=== PATIENT | female | born 1990 | race African-American/Black ===

== ENCOUNTER 2016-10-06 23:07 | Outpatient (CLI) | payer MEDICAID ==
[2016-10-07 00:07] LABS: APPEARANCE,URINE SLIGHTLY-CLOUDY; BILIRUBIN,URINE NEGATIVE (NEGATIVE); GLUCOSE, URINE NEGATIVE (NEGATIVE); KETONES,URINE NEGATIVE (NEGATIVE); LEUKOCYTE ESTERASE,URINE TRACE (NEGATIVE); NITRITE,URINE NEGATIVE (NEGATIVE); PROTEIN,URINE NEGATIVE (NEGATIVE); URINE SPECIFIC GRAVITY 1.026
[2016-10-07 00:28] LABS: URINE BARBITURATES SCREEN NEGATIVE; URINE METHADONE SCREEN NEGATIVE; URINE PHENCYCLIDINE SCREEN NEGATIVE
[2016-10-07] MEDS ORDERED: HYDROXYZINE PAMOATE 50 MG CAPSULE PO ONE (01:12)
[2016-10-07] MEDS ORDERED: HYDROXYZINE PAMOATE 50 MG CAPSULE ONE (01:17)
--- NOTE | 2016-10-07 01:37 | Non Stress Test Report ---
Non Stress Test Datetime Report Generated by CPN: 10/07/2016 01:37 DEMOGRAPHIC EGA NST: 33.0 INDICATION Indication for Study: Other Indication for Study (NST) Other: Labor Check MONITORING Monitor Explained: Monitor Explained; Test Explained; Patient Verbalized Understanding Time on Monitor: 10/06/2016 23:37 Time off Monitor: 10/07/2016 01:05 NST Duration: 88 NST INTERVENTIONS NST Interventions: None Physician Notified NST: Dr Hebert BABY A: [id number] BABY A Movement : Present Contraction Frequency : none FHR Baseline : 145 Accelerations : 15X15 Decelerations : None Variability : Moderate 6-25bpm NST Review: Meets Criteria for Reactive NST NST Review and Verified By : Donnell Onofre, RNC NST Results: Reactive NST REPORT Report Trigger: Send Report
--- NOTE | 2016-10-07 04:47 | L&D Admission Assessment ---
LD ADM ASMT Datetime Report Generated by CPN: 10/07/2016 04:45 PATIENT ASSESSMENT Assessment Type: Triage (10/06/2016 23:45:Rucsandra Alla, RN) WEIGHT Weight (lb): 299 (10/06/2016 23:29:QS system process) Weight (kg): 135.9 (10/06/2016 23:29:QS system process) PAIN Pain Scale: 2 (10/07/2016 01:04:Romain Gold RN) Pain Scale: 4 (10/06/2016 23:45:Romain Gold RN) Pain Presence: Constant (10/07/2016 01:04:Romain Gold RN) Pain Presence: Constant (Annotations: pt reports constant round ligament pain. ) (10/06/2016 23:45:Romani Gold RN) Pain Type: Ache (10/07/2016 01:04:Romain Gold RN) Pain Type: Sharp; Ache (10/06/2016 23:45:Romain Gold RN) Pain Location: round ligament (10/07/2016 01:04:Romain Gold RN) Pain Location: Abdomen (10/06/2016 23:45:Romain Gold RN) Pain Goal: 2 (10/07/2016 01:04:Romain Gold RN) Pain Goal: 2 (10/06/2016 23:45:Romain Gold RN) Pain Related to Contraction: No (10/06/2016 23:45:Romain Gold RN) CONTRACTIONS Frequency (min): none (10/07/2016 01:00:Romain Gold RN) Frequency (min): none (10/07/2016 00:30:Romain Gold RN) Frequency (min): none (10/07/2016 00:00:Romain Gold RN) Frequency (min): 1 every hour (10/06/2016 23:45:Romain Gold RN) Resting Tone Lowrey: Relaxed (10/07/2016 01:00:Romain Gold RN) Resting Tone Lowrey: Relaxed (10/07/2016 00:30:Romain Gold RN) Resting Tone Lowrey: Relaxed (10/07/2016 00:00:Romain Gold RN) Contraction Comments: pt denies feeling ctx. (10/07/2016 00:30:Romain Gold RN) Contraction Comments: abdomen palpates soft. Pt denies feeling ctxx. (10/07/2016 00:00:Romain Gold RN) NEURO Level of Consciousness: Fully Conscious (10/06/2016 23:45:Romain Gold RN) DTR's/Clonus: DTRs 1+; No Clonus (10/06/2016 23:45:Romain Gold RN) Headache: Denies (10/06/2016 23:45:Romain Gold RN) Dizziness: No (10/06/2016 23:45:Romain Gold RN) Blurred Vision: No (10/06/2016 23:45:Romain Gold RN) Extremity Numbness/Tingling : None (10/06/2016 23:45:Romain Gold RN) Extremity Movement: Full Range of Motion (10/06/2016 23:45:Romain Gold RN) CARDIOVASCULAR Heart Rhythm: Regular (10/06/2016 23:45:Romain Gold RN) Nailbeds: [place] (10/06/2016 23:45:Romain Gold RN) Capillary Refill: Less than 3 Seconds (10/06/2016 23:45:Romain Gold RN) Lower Extremities Edema: None (10/06/2016 23:45:Romain Gold RN) Lower Extremities Edema Degree: None (10/06/2016 23:45:Romain Gold RN) Upper Extremities Edema: None (10/06/2016 23:45:Romain Gold RN) Upper Extremities Edema Degree: None (10/06/2016 23:45:Romain Gold RN) Facial Edema: None (10/06/2016 23:45:Romain Gold RN) DVT RISK ASSESSMENT DVT Risk Age: Age less than 41 years (10/06/2016 23:45:Romain Gold RN) DVT Risk BMI: BMI 41 to 50 (10/06/2016 23:45:Romain Gold RN) DVT Risk Surgery: History of Prior Major Surgery (Annotations: pt had C/S on 10/2015) (10/06/2016 23:45:Romain Gold RN) DVT Risk Other: Women Only- or (<1 month) (10/06/2016 23:45:Romain Gold RN) DVT Risk Total: 4 (10/06/2016 23:45:QS system process) DVT Risk Text: High Risk (20-40%)- Consider stockings, compresssion device, pharmacological therapy per hospital policy (10/06/2016 23:45:QS system process) RESPIRATORY Respiratory Effort: Unlabored; Regular Rhythm; Equal Expansion (10/06/2016 23:45:Romain Gold RN) Breath Sounds, Left: Clear and Equal (10/06/2016 23:45:Romain Gold RN) Breath Sounds, Right: Clear and Equal (10/06/2016 23:45:Romain Gold RN) Cough Productivity: None (10/06/2016 23:45:Romain Gold RN) GASTROINTESTINAL Nausea/Vomiting: Denies (10/06/2016 23:45:Romain Gold RN) Bowel Sounds: Normoactive (10/06/2016 23:45:Romain Gold RN) RUQ Epigastric Pain: Denies (10/06/2016 23:45:Romain Gold RN) Bowel Patterns: Soft, Formed Stool (10/06/2016 23:45:Romain Gold RN) Hemorrhoids: None (10/06/2016 23:45:Romain Gold RN) Diet Type: Regular diet (10/06/2016 23:45:Romain Gold RN) Last Meal: 10/06/2016 20:00 (10/06/2016 23:45:Romain Gold RN) GENITOURINARY Bladder: Nondistended (Annotations: voiding) (10/06/2016 23:45:Romain Gold RN) Frequency of Urination: No (10/06/2016 23:45:Romain Gold RN) Urination Burning: No (10/06/2016 23:45:Romain Gold RN) CVA Tenderness: No (10/06/2016 23:45:Romain Gold RN) Vaginal Bleeding: None (10/06/2016 23:45:Romain Gold RN) Vaginal Discharge Amount: None (10/06/2016 23:45:Romain Gold RN) Vaginal Discharge Color: N/A (10/06/2016 23:45:Romain Gold RN) INTEGUMENTARY Skin Color: Normal for Race (10/06/2016 23:45:Romain Gold RN) Skin Temperature: Warm (10/06/2016 23:45:Romain Gold RN) Skin Moisture: Dry (10/06/2016 23:45:Romain Gold RN) Surgical Scars: previous C/S (10/06/2016 23:45:Romain Gold RN) Body Piercings/Tattoos: 3 tattoos, ears pierced. (10/06/2016 23:45:Romain Gold RN) CONNOR SKIN ASSESSMENT Connor Scale Sensory Perception: No Impairment- Responds to verbal commands. Has no sensory deficit which would limit ability to feel or voice pain or discomfort (10/06/2016 23:45:Romain Gold RN) Connor Scale Moisture: Rarely Moist- Skin is usually dry. Linen only requires changing at routine intervals (10/06/2016 23:45:Romain Gold RN) Connor Scale Activity: Walks Frequently- Walks outside the room at least twice a day and inside room at least every 2 hours during the day. (10/06/2016 23:45:Romain Gold RN) Connor Scale Mobility: No Limitations- Makes major and frequent changes in position without assistance (10/06/2016 23:45:Romain Gold RN) Connor Scale Nutrition: Excellent- Eats most of every meal. Never refuses a meal. Usually eats a total of 4 or more servings of meat and dairy products. Occasionally eats between meals. Does not require supplementation (10/06/2016 23:45:Romain Gold RN) Connor Scale Friction and Shear: No Apparent Problem- Moves in bed and in chair independently and has sufficient muscle strength to lift up completely during move. Maintains good position in bed or chair at all times (10/06/2016 23:45:Romain Gold RN) Connor Scale Total: 23 (10/06/2016 23:45:QS system process) Connor Scale Risk: No Risk of Pressure Ulcer Noted at this Time (10/06/2016 23:45:QS system process) SUPPORT Family Support: Significant Other supportive, at bedside frequently (10/06/2016 23:45:Romain Gold RN) Emotional State: Calm/Relaxed (10/06/2016 23:45:Romain Gold RN) SAFETY Call Gutierrez Within Reach: Yes (10/06/2016 23:45:Romain Gold RN) Side Rails Up: Yes (10/06/2016 23:45:Romain Glod RN) Bed Wheels Locked: Yes (10/06/2016 23:45:Romain Gold RN) Arm Bands Present: Yes (10/06/2016 23:45:Romain Gold RN) BABY A FHR Baseline Rate (bpm) Baby A: 140 (10/07/2016 01:00:Romain Gold RN) FHR Baseline Rate (bpm) Baby A: 150 (10/07/2016 00:30:Romain Gold RN) FHR Baseline Rate (bpm) Baby A: 145 (10/07/2016 00:00:Romain Gold RN) Variability Baby A: Moderate 6-25 bpm (10/07/2016 01:00:Romain Gold RN) Variability Baby A: Moderate 6-25 bpm (10/07/2016 00:30:Romain Gold RN) Variability Baby A: Moderate 6-25 bpm (10/07/2016 00:00:Romain Gold RN) Accelerations Baby A: 15X15 (10/07/2016 01:00:Romain Gold RN) Accelerations Baby A: 10X10 (10/07/2016 00:30:Romain Gold RN) Accelerations Baby A: 15X15 (10/07/2016 00:00:Romain Gold RN) Decelerations Baby A: None (10/07/2016 01:00:Romain Gold RN) Decelerations Baby A: None (10/07/2016 00:30:Romain Gold RN) Decelerations Baby A: None (10/07/2016 00:00:Romain Gold RN)
--- NOTE | 2016-10-07 04:47 | Antepartum Discharge Summary ---
Antepartum DC Datetime Report Generated by CPN: 10/07/2016 04:45 DIET/ACTIVITY/RESTRICTIONS Diet: Regular (10/07/2016 01:23:Rucsandra Alla, RN) Activity: Normal Activity (10/07/2016 01:23:Rucsandra Alla, RN) TEACHING/INSTRUCTIONS/REFERRALS Instructions Given To: Patient (10/07/2016 01:23:Rucsandra Alla, RN) Instructions Understood: Patient Verbalized Understanding (10/07/2016 01:23:Romain Gold RN) Referrals: None (10/07/2016 01:23:Romain Gold RN) Educational Materials- Other: Care notes given on kick counts, labor signs, dehydration and round ligament pain. Care notes reviewed wt pt. Pt agrees and V/U. (10/07/2016 01:23:Romain Gold RN) DISCHARGE INFORMATION Discharged AMA: No (10/07/2016 01:23:Romain Gold RN) Discharge Date/Time: 10/07/2016 01:27 (10/07/2016 01:23:Romain Gold RN) Discharged To: Home (10/07/2016 01:23:Romain Gold RN) Discharge Provider Name: Dr Hebert (10/07/2016 01:23:Romain Gold RN) Accompanied By: FOB (10/07/2016 01:23:Romain Gold RN) Discharge Method: Ambulatory (10/07/2016 01:23:Romain Gold RN) Condition: Stable (10/07/2016 01:23:Romain Gold RN) FOLLOW UP INFORMATION Follow Up With: [facility] (10/07/2016 01:23:Romain Gold RN) Follow Up On: As Scheduled (10/07/2016 01:23:Romain Gold RN) Comments: Pt D/C home in stable condition per Dr Hebert. Pt instructed to drink 5-6 pitchers of water per day and to return to unit if bleeding like a period, leaking of fluid, more than 6 ctx per hour, and/or decreased movement. Care notes given and reviewed with pt. Pt instructed to keep scheduled appointments. Pt agrees and V/U regarding all topics discussed. (10/07/2016 01:23:Romain Gold RN)
--- NOTE | 2016-10-07 04:47 | L&D General Admission ---
General Admit Datetime Report Generated by CPN: 10/07/2016 04:45 INFORMATION Patient Age: 26 (09/09/2016 11:53:QS system process) EDC: 11/24/2016 00:00 (10/06/2016 23:10:Jo Onofre RN) : 2 (10/06/2016 23:10:Allison Livingston RN) Para: 1 (10/06/2016 23:10:Allison Livingston RN) Term: 1 (10/06/2016 23:10:Allison Livingston RN) : 0 (10/06/2016 23:10:oJ Onofre RN) Spontaneous Abortions: 0 (10/06/2016 23:10:Jo Onofre RN) Induced Abortions: 0 (10/06/2016 23:10:Jo Onofre RN) Livin (10/06/2016 23:10:Jo Onofre RN) Cesareans: 1 (10/06/2016 23:10:Allison Livingston RN) VBACs: 0 (10/06/2016 23:10:Allison Livingston RN) Ectopic: 0 (10/06/2016 23:10:Allison Livingston RN) Multiple Births: 0 (10/06/2016 23:10:Allison Livingston RN) Baby, Number in Womb: 1 (10/07/2016 01:23:Romain Gold RN) Baby, Number in Womb: 1 (10/06/2016 23:10:Allison Livingston RN) CARE Primary Roof Mechanic: [facility] (10/06/2016 23:10:Allison Livingston RN) Adequate Care: No (10/06/2016 23:10:Allison Livingston RN) Height (in): 60 (10/06/2016 23:29:QS system process) ALLERGIES Medication Allergy: No (10/06/2016 23:10:Allison Livingston RN) Medication Allergies: No Known Allergies (06/05/2016) (09/09/2016 11:53:QS system process) COMMUNICATION Primary Language: Hong Konger (10/06/2016 23:10:Allison Livingston RN) Medical Tx Preferred Language: Hong Konger (10/06/2016 23:10:Allison Livingston RN) Communication Barrier(s): None (10/06/2016 23:10:Allison Livingston RN) DEMOGRAPHICS Address: [address] [place] [address] (10/06/2016 23:08:QS system process) Address: [address] [place] [id number] (09/09/2016 11:53:QS system process) Zipcode: [id number] (09/09/2016 11:53:QS system process) Home (10/06/2016 23:08:QS system process) Home (09/09/2016 11:53:QS system process) Work (09/09/2016 11:53:QS system process) SSN: [id number] (09/09/2016 11:53:QS system process) Next of Kin Name: JUNIOR ARREGUIN (09/09/2016 11:53:QS system process) Next of Kin (09/09/2016 11:53:QS system process) Next of Kin Relationship: OR (09/09/2016 11:53:QS system process) Date of : 1990 (09/09/2016 11:53:QS system process) Marital Status: Single (09/09/2016 11:53:QS system process) Sex: Female (09/09/2016 11:53:QS system process) Race: (09/09/2016 11:53:QS system process) Ethnicity: Non- or (09/09/2016 11:53:QS system process) Church: None (09/09/2016 11:53:QS system process) DRUG AND ALCOHOL USE Alcohol: No (10/06/2016 23:10:Romain Gold RN) Cigarettes: Never Smoker. [id number] (10/06/2016 23:10:Romain Gold RN) Marijuana: No (10/06/2016 23:10:Romain Gold RN) Cocaine: No (10/06/2016 23:10:Romain Gold RN) Other Illicit Drugs: No (10/06/2016 23:10:Romain Gold RN) VACCINE HISTORY Influenza Vaccine: No (10/06/2016 23:10:Romain Gold RN) Pneumococcal Vaccine: No (10/06/2016 23:10:Romain Gold RN) Tetanus Vaccine: No (10/06/2016 23:10:Romain Gold RN) Tdap Vaccine: No (10/06/2016 23:10:Romain Gold RN) Hepatitis B Vaccine: No (10/06/2016 23:10:Romain Gold RN) Paper Sales Representative: [facility] (10/06/2016 23:10:Romain Gold RN) Feeding Preference: Both (10/06/2016 23:10:Romain Gold RN) Benefit of Breast Feed Discussed: Yes (10/06/2016 23:10:Romain Gold RN) Circumcision: N/A (10/06/2016 23:10:Romain Gold RN) Classes Attended: No (10/06/2016 23:10:Romain Gold RN) Pain Management Plans: Spinal (10/06/2016 23:10:Romain Gold RN) Plans for Labor and Delivery: None (10/06/2016 23:10:Romain Gold RN) Support Person: Bradley (10/06/2016 23:10:Romain Gold RN) Support Person Relationship: Significant Other (10/06/2016 23:10:Romain Gold RN) Cultural/Spritual Practice: No (10/06/2016 23:10:Romain Gold RN) Spir/Cult Dietary Needs: No (10/06/2016 23:10:Romain Gold RN) LIVING SITUATION/DISCHARGE PLAN Living Arrangements: House (10/06/2016 23:10:Romain Gold RN) Adequate Access to:: Electric; Heat; Refrigeration; Plumbing/Running water; Phone; Transportation (10/06/2016 23:10:Romain Gold RN) WIC Program: Yes (10/06/2016 23:10:Romain Gold RN) Discharge Front End Developer Person: Bradley (10/06/2016 23:10:Romain Gold RN) Person to Help after Discharge: Bradley (10/06/2016 23:10:Romain Gold RN) Currently Using Commun Resources: Yes (10/06/2016 23:10:Romain Gold RN) Specify Current Resource Used: Medicaid (10/06/2016 23:10:Romain Gold RN) Outside Agency/Section Maintainer: No (10/06/2016 23:10:Romain Gold RN) Car Seat for Discharge: Yes (10/06/2016 23:10:Romain Gold RN) Adoption Requested: No (10/06/2016 23:10:Romain Gold RN) Pt Contact w/ Post : N/A (10/06/2016 23:10:Romain Gold RN) LABS Blood Type: A Positive (10/06/2016 23:10:Jo Onofre RN) Antibody Screen: negative (10/06/2016 23:10:Jo Onofre RN) RPR/VDRL: Nonreactive (10/06/2016 23:10:Jo Onofre RN) HIV Results: non-reactive (10/06/2016 23:10:Jo Onofre RN) Hepatitis B: Negative (10/06/2016 23:10:Jo Onofre RN) Rubella: Immune (10/06/2016 23:10:Jo Onofre RN) Rubella Titer: 1.74 (10/06/2016 23:10:Jo Onofre RN) OB/PREVIOUS HISTORY Previous Procedures: Ultrasound (10/06/2016 23:10:Romain Gold RN) Current Procedures: Ultrasound (10/06/2016 23:10:Romain Gold RN) History of Previous : Yes (10/06/2016 23:10:Romain Gold RN) History of Gestational Diabetes: No (10/06/2016 23:10:Romain Gold RN) History of PIH: No (10/06/2016 23:10:Romain Gold RN) History of Incompetent Cervix: No (10/06/2016 23:10:Romain Gold RN) History of Placenta Previa/Abrup: No (10/06/2016 23:10:Romain Gold RN) History of Macrosomia: No (10/06/2016 23:10:Romain Gold RN) History of IUGR: No (10/06/2016 23:10:Romain Gold RN) History of Hemorrhage: No (10/06/2016 23:10:Romain Gold RN) History of Loss/Stillborn: No (10/06/2016 23:10:Romain Gold RN) History of : No (10/06/2016 23:10:Romain Gold RN) History of D (Rh) Sensitization: No (10/06/2016 23:10:Romain Gold RN) History Recurrent Loss/Stillborn: No (10/06/2016 23:10:Romain Gold RN) History Depression/PP Depression: No (10/06/2016 23:10:Romain Gold RN) History of Uterine Anomaly/CONY: No (10/06/2016 23:10:Romain Gold RN) History of Infertility: No (10/06/2016 23:10:Romain Gold RN) History of ART Treatment: No (10/06/2016 23:10:Romain Gold RN) History of CONY: No (10/06/2016 23:10:Romain Gold RN) MEDICAL HISTORY Med Hx Diabetes: No (10/06/2016 23:10:Romain Gold RN) Med Hx Hypertension: No (10/06/2016 23:10:Romain Gold RN) Med Hx Heart Disease: No (10/06/2016 23:10:Romain Gold RN) Med Hx Autoimmune Disorder: No (10/06/2016 23:10:Romain Gold RN) Med Hx Kidney Disease/UTI: No (10/06/2016 23:10:Romain Gold RN) Med Hx Neurologic/Epilepsy: No (10/06/2016 23:10:Romain Gold RN) Med Hx Psychiatric Disorders: No (10/06/2016 23:10:Romain Gold RN) Med Hx Hepatitis/Liver Disease: No (10/06/2016 23:10:Romain Gold RN) Med Hx Varicosities/Phlebitis: No (10/06/2016 23:10:Romain Gold RN) Med Hx Thyroid Dysfunction: No (10/06/2016 23:10:Romain Gold RN) Med Hx Trauma/Violence: No (10/06/2016 23:10:Romain Gold RN) Med Hx Blood Transfusion: No (10/06/2016 23:10:Romain Gold RN) Med Hx Pulmonary (Asthma,TB): No (10/06/2016 23:10:Romain Gold RN) Med Hx Breast: No (10/06/2016 23:10:Romain Gold RN) Med Hx NATIONAL EXPANSION RECRUITER Surgery: No (10/06/2016 23:10:Romain Gold RN) Med Hx Hospitalization/Surgery: Yes (10/06/2016 23:10:Romain Gold RN) Med Hx Anesthetic Complications: No (10/06/2016 23:10:Romain Gold RN) Med Hx Abnormal Pap Smear: No (10/06/2016 23:10:Romain Gold RN) Other Medical Diseases: No (10/06/2016 23:10:Romain Gold RN) Med Hx Significant Family Hx: No (10/06/2016 23:10:Romain Gold RN) Details of Med/Surg Hx: 10/2015 G1- Primary C/S (10/06/2016 23:10:Romain Gold RN) INFECTIOUS HISTORY Inf Hx Gonorrhea: No (10/06/2016 23:10:Romain Gold RN) Inf Hx Chlamydia: No (10/06/2016 23:10:Romain Gold RN) Inf Hx Syphilis: No (10/06/2016 23:10:Romain Gold RN) Inf Hx HIV/AIDS: No (10/06/2016 23:10:Romain Gold RN) Inf Hx Human Papilloma Virus: No (10/06/2016 23:10:Romain Gold RN) Inf Hx Pt/Partner Genital Herpes: No (10/06/2016 23:10:Romain Gold RN) Inf Hx Tuberculosis/Exposure: No (10/06/2016 23:10:Romain Gold RN) Inf Hx Hepatitis B,C: No (10/06/2016 23:10:Romain Gold RN) Inf Hx Rash or Viral Illness: No (10/06/2016 23:10:Romain Gold RN) GENETIC HISTORY Gen Hx Age >=35 at JOVANNI: No (10/06/2016 23:10:Romain Gold RN) Gen Hx Thalassemia: No (10/06/2016 23:10:Romain Gold RN) Gen Hx Congenital Heart Defect: No (10/06/2016 23:10:Romain Gold RN) Gen Hx Neural Tube Defect: No (10/06/2016 23:10:Romain Gold RN) Gen Hx Down's Syndrome: No (10/06/2016 23:10:Romain Gold RN) Gen Hx Wil-Sachs: No (10/06/2016 23:10:Romain Gold RN) Gen Hx Jose: No (10/06/2016 23:10:Romain Gold RN) Gen Hx Familial Dysautonomia: No (10/06/2016 23:10:Romain Gold RN) Gen Hx Sickle Cell Disease/Trait: No (10/06/2016 23:10:Romain Gold RN) Gen Hx Hemophilia/Blood Disorder: No (10/06/2016 23:10:Romain Gold RN) Gen Hx Muscular Dystrophy: No (10/06/2016 23:10:Romain Gold RN) Gen Hx Cystic Fibrosis: No (10/06/2016 23:10:Romain Gold RN) Gen Hx Huntingtons Chorea: No (10/06/2016 23:10:Romain Gold RN) Gen Hx Mental Retardation/Autism: No (10/06/2016 23:10:Romain Gold RN) Gen Hx Tested for Fragile X: No (10/06/2016 23:10:Romain Gold RN) Gen Hx Other Inher/Chromosomal: No (10/06/2016 23:10:Romain Gold RN) Gen Hx Maternal Metabolic DO: No (10/06/2016 23:10:Romain Gold RN) Gen Hx Pt Father or FOB Defect: No (10/06/2016 23:10:Romain Gold RN) Gen Hx Other Genetic History: No (10/06/2016 23:10:Romain Gold RN) Gen Hx Drugs/Meds since LMP: No (10/06/2016 23:10:Romain Gold RN)
--- NOTE | 2016-10-07 04:47 | L&D Current Admission ---
Current Admit Datetime Report Generated by N: 10/07/2016 04:45 ADMISSION INFORMATION Chief Complaint: at 33.0 EDC 11/24/16 with planned C/S on 11/17/16 with complaints of 1 ctx per hour throughout the day. Pt states she was told that if she had more than 4 ctx in a day to come to the hospital. Pt also complaining of round ligament pain which she rates as a 4 on a 0-5 scale, however no distress noted. Pt denies LOF or bleeding. +FM. (10/06/2016 23:45:Romain Gold RN)
--- NOTE | 2016-10-07 04:47 | L&D Flow Sheet ---
LD Flowsheet Datetime Report Generated by CPN: 10/07/2016 04:45 Datetime: 10/07/2016 01:27 Communication Comments: Pt D/C home in stable condition per Dr Hebert. Pt instructed to drink 5-6 pitchers of water per day and to return to unit if bleeding like a period, leaking of fluid, more than 6 ctx per hour, and/or decreased movement. Care notes given and reviewed with pt. Pt instructed to keep scheduled appointments. Pt agrees and V/U regarding all topics discussed. (Romain Gold RN) Datetime: 10/07/2016 01:17 Medications Medication Comments: Vistaril 50mg PO x1 dose. (Rucsandra Alla, RN) Datetime: 10/07/2016 01:10 Maternal Comments: Monitors off for pt D/C home in stable condition per Dr. Hebert. (Rucsandra Alla, RN) Datetime: 10/07/2016 01:08 Communication Communication: Call/Page Placed to Provider (Romain Gold RN) Provider Notified (Name): Dr Hebert (Romain Gold RN) Notification Reason: Status Update (Romain Gold RN) Communication Comments: Called Dr Hebert, advised of Gs_Ps, pt complaints and medical history reviewed with MD. advised of FHTs, CTX, VS and urine results. Orders received to D/C home and offer pt Vistaril 50mg PO x1 dose now. (Romain Gold RN) Datetime: 10/07/2016 01:06 I/O Interventions: Up to BR (Romain Gold RN) Datetime: 10/07/2016 01:04 NBP Sys/Ciera/Mean (mmHg): 124 (QS system process) : 61 (QS system process) : 84 (QS system process) Pulse: 99 (QS system process) Pain Pain Scale: 2 (Romain Gold RN) Pain Presence: Constant (Romain Gold RN) Pain Type: Ache (Romain Gold RN) Pain Location: round ligament (Romain Gold RN) Pain Goal: 2 (Romain Gold RN) Pain Coping: no signs of distress noted (Romain Gold RN) LaborFlag: Antepartum (QS system process) Datetime: 10/07/2016 01:00 Uterine Activity Monitor Mode: External; Palpation (Rucsandra Alla, RN) Frequency (min): none (Rucsandra Alla, RN) Resting Tone (Palpate): Relaxed (Rucsandra Alla, RN) Assessment A Monitor Mode: External US (Rucsandra Alla, RN) FHR Baseline Rate : 140 (Rucsandra Alla, RN) Variability: Moderate 6-25 bpm (Rucsandra Alla, RN) Accelerations: 15X15 (Rucsandra Alla, RN) Decelerations: None (Rucsandra Alla, RN) Datetime: 10/07/2016 00:53 I/O Interventions: Clear Liquids Given (Rucsandra Alla, RN) Datetime: 10/07/2016 00:49 Monitor Interventions for FHR: Ultrasound Adjusted (Rucsandra Alla, RN) Datetime: 10/07/2016 00:47 Monitor Interventions for UA: Pavo Adjusted (Rucsandra Alla, RN) Monitor Interventions for FHR: Ultrasound Adjusted (Rucsandra Alla, RN) Patient Care Patient Position/Activity: Left Lateral (Rucsandra Alla, RN) Datetime: 10/07/2016 00:36 Monitor Interventions for UA: Pavo Adjusted (Rucsandra Alla, RN) Monitor Interventions for FHR: Ultrasound Adjusted (Rucsandra Alla, RN) Datetime: 10/07/2016 00:33 Patient Care Patient Position/Activity: Right Lateral (Rucsandra Alla, RN) Datetime: 10/07/2016 00:30 Uterine Activity Monitor Mode: External; Palpation (Ruandra Alla, RN) Frequency (min): none (Rucsandra Alla, RN) Resting Tone (Palpate): Relaxed (Rucsandra Alla, RN) Contraction Comments: pt denies feeling ctx. (Rucsandra Alla, RN) Assessment A Monitor Mode: External US (Rucsandra Alla, RN) FHR Baseline Rate : 150 (Rucsandra Alla, RN) Variability: Moderate 6-25 bpm (Rucsandra Alla, RN) Accelerations: 10X10 (Rucsandra Alla, RN) Decelerations: None (Rucsandra Alla, RN) Datetime: 10/07/2016 00:23 I/O Interventions: Clear Liquids Given (Rucsandra Alla, RN) Datetime: 10/07/2016 00:19 NBP Sys/Ciera/Mean (mmHg): 127 (QS system process) : 68 (QS system process) : 88 (QS system process) Pulse: 99 (QS system process) LaborFlag: Antepartum (QS system process) Datetime: 10/07/2016 00:04 NBP Sys/Ciera/Mean (mmHg): 120 (QS system process) : 57 (QS system process) : 83 (QS system process) Pulse: 104 (QS system process) Maternal Comments: pt sitting up in bed, water and juice provided. (Romain Gold RN) LaborFlag: Antepartum (QS system process) Datetime: 10/07/2016 00:00 Uterine Activity Monitor Mode: External; Palpation (Romain Gold RN) Frequency (min): none (Romain Gold RN) Resting Tone (Palpate): Relaxed (Romain Gold RN) Contraction Comments: abdomen palpates soft. Pt denies feeling ctxx. (Romain Gold RN) Assessment A Monitor Mode: External US (Rucsandra Alla, RN) FHR Baseline Rate : 145 (Rucsandra Alla, RN) Variability: Moderate 6-25 bpm (Rucsandra Alla, RN) Accelerations: 15X15 (Rucsandra Alla, RN) Decelerations: None (Rucsandra Alla, RN) Datetime: 10/06/2016 23:49 NBP Sys/Ciera/Mean (mmHg): 133 (QS system process) : 66 (QS system process) : 93 (QS system process) Pulse: 102 (QS system process) LaborFlag: Antepartum (QS system process) Datetime: 10/06/2016 23:45 Frequency (min): 1 every hour (Rucsandra Alla, RN) Pain Pain Scale: 4 (Ciraaandra Gold, RN) Pain Presence: Constant (Annotations: pt reports constant round ligament pain. ) (Runilsaandra Gold, RN) Pain Type: Sharp; Ache (Romain Gold, RN) Pain Location: Abdomen (Romain oGld, RN) Pain Goal: 2 (Rucsandra Alla, RN) Pain Coping: Pt talking, no signs of distress noted (Rucsandra Gold, RN) Vaginal Exam Vaginal Bleeding: None (Rucsandra Alla, RN) Maternal Assessment Level of Consciousness: Fully Conscious (Romain Gold, RN) DTR's/Clonus: DTRs 1+; No Clonus (Romain Gold, RN) Headache: Denies (Romain Gold, RN) Breath Sounds, Left: Clear and Equal (Ciaraandra Gold, RN) Breath Sounds, Right: Clear and Equal (Ciaraandra Gold, RN) Nausea/Vomiting: Denies (Romain Gold, RN) RUQ Epigastric Pain: Denies (Romain Gold, RN) LaborFlag: Antepartum (QS system process) Datetime: 10/06/2016 23:43 Comments: audible movement. Pt reports feeling movement. (Romain Gold, RN) Datetime: 10/06/2016 23:40 Temperature (F): 98.4 (Romain Gold, RN) Temperature (C): 36.9 (QS system process) LaborFlag: Antepartum (QS system process) Datetime: 10/06/2016 23:37 Teaching Instructional Method: Verbal; Patient Instructed; Family/Support Person Instructed; Verbalized Understanding (Romain Gold RN) Plan of Care: Plan of Care Discussed (Romain Gold RN) Unit Routine: [place] to Room; Call Gutierrez; Bed; Phone/Cell Phone Use; Unit Personnel; Handwashing; Monitoring; Bathroom Privileges (Romain Gold RN) Datetime: 10/06/2016 23:36 Vital Signs Stage of : Antepartum (Rucsandra Alla, RN) Datetime: 10/06/2016 23:35 NBP Sys/Ciera/Mean (mmHg): 133 (QS system process) : 78 (QS system process) : 98 (QS system process) Pulse: 108 (QS system process)
--- NOTE | 2016-10-07 04:47 | L&D Discharge Summary ---
OB Discharge Summary Datetime Report Generated by CPN: 10/07/2016 04:45 DISCHARGE DIAGNOSIS Diagnosis/Symptoms: False Labor; Dehydration Gestation: 33.0 Number of Babies in Womb: 1 Parity: 1 DIET/ACTIVITY/RESTRICTIONS Diet: Regular Activity: Normal Activity TEACHING/INSTRUCTIONS/REFERRALS Instructions Given To: Patient Instructions Understood: Patient Verbalized Understanding Referrals: None Educational Materials- Other: Care notes given on kick counts, labor signs, dehydration and round ligament pain. Care notes reviewed wtih pt. Pt agrees and V/U. DISCHARGE INFORMATION Discharged AMA: No Discharge Date/Time: 10/07/2016 01:27 Discharged To: Home Discharge Provider Name: Dr Hebert Accompanied By: FOB Discharge Method: Ambulatory Condition: Stable FOLLOW UP INFORMATION Follow Up With: [facility] Follow Up On: As Scheduled Comments: Pt D/C home in stable condition per Dr Hebert. Pt instructed to drink 5-6 pitchers of water per day and to return to unit if bleeding like a period, leaking of fluid, more than 6 ctx per hour, and/or decreased movement. Care notes given and reviewed with pt. Pt instructed to keep scheduled appointments. Pt agrees and V/U regarding all topics discussed.
== END 2016-10-07 01:27 | disposition home or self-care (01) ==
LOC: LC 23:07
PROVIDERS: ATTEND Obstetrics & Gynecology
PROC: 4A1HXCZ Monitoring of Products of Conception, Cardiac Rate, External Approach (ICD-10-PCS; principal; 2016-10-06)
DX: O47.03 False labor before 37 completed weeks of gestation, third trimester (principal); O99.283 Endocrine, nutritional and metabolic diseases complicating pregnancy, third trimester; E86.0 Dehydration; Z3A.33 33 weeks gestation of pregnancy
CPT/HCPCS: 59025; 81001; 80307; J3490

== ENCOUNTER 2016-11-17 05:04 | Inpatient (IN) | payer MEDICAID ==
[2016-11-10 11:32] LABS: APPEARANCE,URINE SLIGHTLY-CLOUDY; BILIRUBIN,URINE NEGATIVE (NEGATIVE); GLUCOSE, URINE NEGATIVE (NEGATIVE); KETONES,URINE NEGATIVE (NEGATIVE); LEUKOCYTE ESTERASE,URINE TRACE (NEGATIVE); NITRITE,URINE NEGATIVE (NEGATIVE); PROTEIN,URINE NEGATIVE (NEGATIVE); URINE SPECIFIC GRAVITY 1.013
[2016-11-10 11:47] LABS: URINE BARBITURATES SCREEN NEGATIVE; URINE METHADONE SCREEN NEGATIVE; URINE OPIATES LOW NEGATIVE; URINE PHENCYCLIDINE SCREEN NEGATIVE
[2016-11-10 11:54] LABS: ABSOLUTE EOSINOPHILS # (AUTO) 0.1 10^3/uL (0.0-0.6); ABSOLUTE LYMPHOCYTES (AUTO) 1.6 10^3/uL (0.5-4.7); ABSOLUTE MONOCYTES (AUTO) 0.5 10^3/uL (0.1-1.4); ABSOLUTE NEUT (AUTO) 5.9 10^3/uL (1.7-8.2); BASOPHILS % (AUTO) 0.5 % (0-2); EOSINOPHILS % (AUTO) 0.7 % (0-6); HEMATOCRIT 35.4 % (36.0-47.0); HEMOGLOBIN 11.4 g/dL (12.0-15.5); HGB HCT DIFFERENCE -1.2; LYMPHOCYTES % (AUTO) 19.6 % (13-45); MEAN CORPUSCULAR HEMOGLOBIN 26.2 pg (27.0-33.4); MEAN CORPUSCULAR HGB CONC 32.1 g/dL (32.0-36.0); MEAN CORPUSCULAR VOLUME 82 fl (80-97); MONOCYTES % (AUTO) 5.8 % (3-13); RED BLOOD COUNT 4.34 10^6/uL (3.72-5.28); RED CELL DISTRIBUTION WIDTH 17.2 % (11.5-14.0); SEGMENTED NEUTROPHILS % (AUTO) 73.4 % (42-78)
[2016-11-17] MEDS ORDERED: CEFAZOLIN INJ 1 GM VIAL IV SCH (05:45)
[2016-11-17] MEDS ORDERED: RINGERS SOLUTION,LACTATED 1,500 ML IV SCH (05:45)
[2016-11-17] MEDS ORDERED: CEFAZOLIN 1 GM/D5W RTU 1 GM/50 ML RTUPB IV ONE ×2 (06:00→06:14)
[2016-11-17] MEDS ORDERED: PROPOFOL INJ 200 MG/20 ML VIAL IV ONE (07:34)
[2016-11-17] MEDS ORDERED: FENTANYL CITRATE INJ/PF 100 MCG/2 ML AMPUL ONE ×2 (07:35→10:49)
[2016-11-17] MEDS ORDERED: MIDAZOLAM 2 MG/2 ML INJ ONE (07:35)
[2016-11-17] MEDS ORDERED: OXYTOCIN 10 UNIT/ML VIAL ONE (07:35)
[2016-11-17] MEDS ORDERED: CEFAZOLIN INJ 1 GM VIAL ONE (08:38)
--- NOTE | 2016-11-17 09:28 | OPERATIVE REPORT E ---
Operative Report NAME: JAJA ADAMS : 1990 AGE: 26Y DATE OF SURGERY: 11/17/2016 ROOM: 227 PREOPERATIVE DIAGNOSES: 1. IUP at 39 weeks. 2. Previous . Desires repeat. POSTOPERATIVE DIAGNOSES: 1. IUP at 39 weeks. 2. Previous . Desires repeat. OPERATION: A low transverse hysterotomy section, repeat. SURGEON: LISA CÁRDENAS M.D. ELECTRIC METER INSPECTOR: Carin Johnson, wheelchair van operator first responder student. ANESTHESIA: Dr. York with an epidural. FINDINGS: Female infant in cephalic presentation with Apgars of 8 and 9, weight 6 pounds 9 ounces. COMPLICATIONS: None. ESTIMATED BLOOD LOSS: 600 mL. TISSUE REMOVED OR ALTERED: None. PROCEDURE: Patient was taken to the operating room, prepared and draped in a normal sterile fashion in a supine position with a leftward tilt. A transverse skin incision was made following patient's previous scar with a scalpel. This was carried through to the underlying layer fascia with the same scalpel. The fascia was incised in the midline, extended laterally with sharp dissection. The rectus muscle was sharply dissected from the fascia using Stevens scissors. Rectus muscle was divided with a little bit of sharp dissection due to some scarring. Was able to visualize the peritoneum easily. The peritoneum was then entered bluntly with surgeon finger fracture. Good visualization of the uterus and the bladder. The uterus was noted to be tilted somewhat to the left. The bladder blade was inserted. The hysterotomy was created with a scalpel and extended laterally with surgeon finger fracture. The amniotomy was performed with a hemostat, and the was then delivered atraumatically. The nose and mouth were suctioned with a suction bulb. The cord was clamped and cut. The was handed off to waiting pediatricians. The cord blood was collected. The placenta was removed manually. The uterus was exteriorized and cleared of clots and debris. The hysterotomy was closed with 0 Monocryl in a running locked fashion. A second layer of imbrication was used for hemostasis. There was noted to be a small amount of bleeding at the right lateral aspect of the hysterotomy. This was tied off with 2-0 chromic figure-of-8. Hemostasis was obtained at that point. The uterus was then returned to the abdomen, and the peritoneal cavity was cleared of clots and debris. The rectus muscle was reapproximated with 2-0 chromic using a mattress stitch. The fascia was closed with 0 Vicryl in a running fashion. The subcutaneous layer was closed with plain catgut, and the skin was closed with 4-0 Vicryl. Patient tolerated procedure well. Sponge, lap and needle counts were correct x2, and the patient was taken to recovery in stable condition. DICTATING PHYSICIAN: LISA CÁRDENAS M.D. [id number] PHY#: [id number] ID: [id number] JOB#: [id number] ACCT: [id number] cc:LISA CÁRDEANS M.D. >
[2016-11-17] MEDS ORDERED: MORPHINE SULFATE 10 MG/ML INJ IV PRN ×2 (09:49→09:53)
[2016-11-17] MEDS ORDERED: PROMETHAZINE HCL INJ 25 MG/1 ML VIAL IV PRN ×2 (09:49→09:52)
[2016-11-17] MEDS ORDERED: FENTANYL CITRATE INJ/PF 100 MCG/2 ML AMPUL IV PRN ×2 (09:49)
[2016-11-17] MEDS ORDERED: MEPERIDINE HCL/PF INJ 25 MG/1 ML DISP.SYRIN IV PRN (09:49)
[2016-11-17] MEDS ORDERED: SIMETHICONE 80 MG TAB.CHEW PO PRN (09:52)
[2016-11-17] MEDS ORDERED: MEASLES,MUMPS&RUBELLA VACC/PF 0.5 ML VIAL SUBCUT PRN (09:52)
[2016-11-17] MEDS ORDERED: OXYTOCIN/NORMAL SALINE 1,000 ML IV PRN (09:52)
[2016-11-17] MEDS ORDERED: OXYCODONE-ACETAMINOPHEN 5-325 MG TABLET PO PRN (09:52)
[2016-11-17] MEDS ORDERED: DIPH/PERTUSS(ACELL)/TETANUS VAC/PF 0.5 ML SYR (>=10YO) IM PRN (09:52)
[2016-11-17] MEDS ORDERED: ACETAMINOPHEN 325 MG TABLET PO PRN (09:52)
[2016-11-17] MEDS ORDERED: RINGERS SOLUTION,LACTATED 1,000 ML IV PRN (09:53)
[2016-11-17] MEDS ORDERED: ACETAMINOPHEN 100 ML IV ONE ×2 (09:59→10:30)
[2016-11-17] MEDS ORDERED: AMPICILLIN SOD/SULBACTAM 3 GM VIAL IV SCH (10:00)
[2016-11-17] MEDS ORDERED: AMPICILLIN SOD/SULBACTAM 3 GM VIAL ONE (10:00)
--- NOTE | 2016-11-17 10:00 | L&D Flow Sheet ---
LD Flowsheet Datetime Report Generated by CPN: 11/17/2016 10:00 Datetime: 11/17/2016 09:57 NBP Sys/Ciera/Mean (mmHg): 125 (QS system process) : 65 (QS system process) : 88 (QS system process) Pulse: 83 (QS system process) Pulse: 81 (QS system process) SpO2 (%): 100 (QS system process) Datetime: 11/17/2016 09:52 NBP Sys/Ciera/Mean (mmHg): 124 (QS system process) : 59 (QS system process) : 86 (QS system process) Pulse: 79 (QS system process) Pulse: 80 (QS system process) SpO2 (%): 100 (QS system process) Datetime: 11/17/2016 09:47 NBP Sys/Ciera/Mean (mmHg): 125 (QS system process) : 63 (QS system process) : 87 (QS system process) Pulse: 80 (QS system process) Pulse: 85 (QS system process) SpO2 (%): 100 (QS system process) Datetime: 11/17/2016 09:42 NBP Sys/Ciera/Mean (mmHg): 114 (QS system process) : 65 (QS system process) : 83 (QS system process) Pulse: 85 (QS system process) Pulse: 88 (QS system process) SpO2 (%): 100 (QS system process) Datetime: 11/17/2016 09:37 NBP Sys/Ciera/Mean (mmHg): 121 (QS system process) : 61 (QS system process) : 86 (QS system process) Pulse: 90 (QS system process) Datetime: 11/17/2016 09:35 Pulse: 84 (QS system process) SpO2 (%): 100 (QS system process) Datetime: 11/17/2016 09:25 Stage of : Recovery (Lawanda Roverto, RN) Datetime: 11/17/2016 09:01 Stage of : Recovery (Lawanda Layne RN)
[2016-11-17] MEDS: PRENATAL VITAMIN W-O CA NO5/FE FUMARATE/FA CAPSULE PO SCH (10:18)
[2016-11-17] MEDS: DOCUSATE SODIUM 100 MG CAPSULE PO SCH ×2 (10:18→17:28)
[2016-11-17] MEDS: FENTANYL CITRATE INJ/PF 100 MCG/2 ML AMPUL IV PRN ×2 (10:50→10:59)
[2016-11-17] MEDS ORDERED: PHENYLEPHRINE HCL INJ/PF 10 MG/1 ML SDV ONE (11:23)
[2016-11-17] MEDS ORDERED: KETOROLAC TROMETHAMINE 60 MG/2 ML SDV ONE (11:23)
[2016-11-17] MEDS ORDERED: LIDOCAINE 2% INJ-PF (20 MG/ML) 10 ML AMPUL ONE ×2 (11:23→11:25)
[2016-11-17] MEDS ORDERED: ONDANSETRON HCL INJ/PF 4 MG/2 ML SDV ONE (11:23)
[2016-11-17] MEDS ORDERED: HYDROMORPHONE HCL INJ/PF 2 MG/ML AMPULE ONE (12:34)
[2016-11-17] MEDS ORDERED: KETOROLAC TROMETHAMINE INJ/PF 30 MG/1 ML SDV IV SCH ×2 (14:00→19:30)
[2016-11-17] MEDS: AMPICILLIN SODIUM/SULBACTAM NA 3 GM in NORMAL SALINE 100 ML IV SCH (17:29)
[2016-11-17] MEDS: KETOROLAC TROMETHAMINE INJ/PF 30 MG/1 ML SDV IV SCH (19:47)
[2016-11-17] MEDS: OXYCODONE-ACETAMINOPHEN 5-325 MG TABLET PO PRN (19:50)
[2016-11-18] MEDS: AMPICILLIN SODIUM/SULBACTAM NA 3 GM in NORMAL SALINE 100 ML IV SCH ×3 (01:03→18:41)
[2016-11-18] MEDS: OXYCODONE-ACETAMINOPHEN 5-325 MG TABLET PO PRN ×4 (01:03→22:12)
[2016-11-18] MEDS: KETOROLAC TROMETHAMINE INJ/PF 30 MG/1 ML SDV IV SCH (02:31)
[2016-11-18] MEDS ORDERED: LACTATED RINGERS 1000 ML IV PRN (05:00)
[2016-11-18] MEDS ORDERED: LIDOCAINE 0.5% INJ-PF (5 MG/ML) 50 ML SDV SUBCUT PRN (05:00)
[2016-11-18] MEDS: DOCUSATE SODIUM 100 MG CAPSULE PO SCH ×2 (10:04→18:15)
[2016-11-18] MEDS: PRENATAL VITAMIN W-O CA NO5/FE FUMARATE/FA CAPSULE PO SCH (10:04)
[2016-11-18 10:31] LABS: HEMATOCRIT 32.1 % (36.0-47.0); HEMOGLOBIN 10.5 g/dL (12.0-15.5); HGB HCT DIFFERENCE -0.6; MEAN CORPUSCULAR HEMOGLOBIN 26.6 pg (27.0-33.4); MEAN CORPUSCULAR HGB CONC 32.8 g/dL (32.0-36.0); MEAN CORPUSCULAR VOLUME 81 fl (80-97); RED BLOOD COUNT 3.94 10^6/uL (3.72-5.28); RED CELL DISTRIBUTION WIDTH 17.5 % (11.5-14.0); WHITE BLOOD COUNT 8.4 10^3/uL (4.0-10.5)
--- NOTE | 2016-11-18 12:40 | PDOC PROGRESS REPORT ---
Subjective-OB Subjective: Post Delivery Day: 26 year old. Denies any needs at this time incision dry and intact ff@u-1 mild lochia +flatus -bm encourage ambulation anticipate d/c in AM Physical Exam (OB) Vital Signs: Temp Pulse Resp BP Pulse Ox 98.2 F 98 20 118/71 100 11/18/16 11:46 11/18/16 11:46 11/18/16 11:46 11/18/16 11:46 11/18/16 11:46 Intake & Output 11/17/16 11/18/16 11/19/16 06:59 06:59 06:59 Intake Total 0 500 Output Total 600 500 Balance -600 0 - PIH/Pre-Eclampsia Clonus: Negative - Dressing Removed: No - medipore dressing D&I, no drainage, redness or swelling noted Incision: Dressing Closure Type: medipore - Lochia Lochia Amount: Scant < 10 ml Lochia Color: Rubra/Red - Abdomen Description: Tender, Soft Hernia Present: No Fundal Description: Firm, Midline Describe if Not Midline: to right on U Fundal Height: u/u - u/2 Objective-Diagnostic Laboratory: 11/18/16 09:50 11/18/16 11/18/16 07:14 09:50 WBC Cancelled 8.4 RBC Cancelled 3.94 Hgb Cancelled 10.5 L Hct Cancelled 32.1 L MCV Cancelled 81 MCH Cancelled 26.6 L MCHC Cancelled 32.8 RDW Cancelled 17.5 H Plt Count Cancelled 234
[2016-11-18] MEDS: IBUPROFEN 800 MG TABLET PO SCH ×3 (13:15→23:29)
[2016-11-19] MEDS: OXYCODONE-ACETAMINOPHEN 5-325 MG TABLET PO PRN (05:02)
[2016-11-19] MEDS: IBUPROFEN 800 MG TABLET PO SCH ×2 (05:04→12:38)
[2016-11-19 08:53] VITALS: BP 126/79
[2016-11-19] MEDS: PRENATAL VITAMIN W-O CA NO5/FE FUMARATE/FA CAPSULE PO SCH (09:21)
[2016-11-19] MEDS: DOCUSATE SODIUM 100 MG CAPSULE PO SCH (09:21)
--- NOTE | 2016-11-19 11:47 | PDOC DISCHARGE SUMMARY ---
Final Diagnosis Discharge Date: 11/19/16 - Final Diagnosis (1) delivery delivered Is this a current diagnosis for this admission?: Yes Discharge Data - Discharge Medication Home Medications: Rhy996/FA/Omega3/Dha/Fish Oil [ Gummies] 1 each PO DAILY #30 tab.chew Doxylamine/Pyridoxine HCl [Diclegis Dr 10-10 mg Tablet] 2 tab PO QHS PRN Reason(s) for Admission: Ceasarean Section-Repeat Procedures: None Intrapartum Procedure(s): : Low Cervical, Transverse - Diagnosis Test Laboratory: Temp Pulse Resp BP Pulse Ox 98.3 F 105 H 19 126/79 H 99 11/19/16 08:36 11/19/16 08:36 11/19/16 08:36 11/19/16 08:36 11/19/16 08:36 11/10/16 11/10/16 11/18/16 10:20 10:28 07:14 RBC 4.34 Cancelled Hgb 11.4 L Cancelled Hct 35.4 L Cancelled Urine Opiates Screen NEGATIVE 11/18/16 09:50 RBC 3.94 Hgb 10.5 L Hct 32.1 L Urine Opiates Screen - Discharge information/Instructions Discharge Activity: Activity As Tolerated, No Driving, No Lifting Over 10 Pounds , No Lifting/Push/Pulling, Pelvic Rest, No tub bath Discharge Diet: Regular Disposition: HOME, SELF-CARE Follow up with: [facility] in: 5, Days
== END 2016-11-19 16:45 | disposition home or self-care (01) | DRG 766 ==
LOC: 2S 05:04
PROVIDERS: ADMIT Obstetrics & Gynecology; ATTEND Obstetrics & Gynecology
PROC: 10D00Z1 Extraction of Products of Conception, Low, Open Approach (ICD-10-PCS; principal; 2016-11-17 07:45)
DX: O34.211 Maternal care for low transverse scar from previous cesarean delivery (principal); O99.214 Obesity complicating childbirth; E66.01 Morbid (severe) obesity due to excess calories; Z3A.39 39 weeks gestation of pregnancy; Z37.0 Single live birth; O09.33 Supervision of pregnancy with insufficient antenatal care, third trimester
CPT/HCPCS: 1961; 36415; 59025; 80307; 81001; 85025; 85027; 86850; 86900; 86901; 90715; 94799; J0131; J0295; J0690; J1170; J1885; J2250; J2270; J2370; J2405; J2590; J2704; J3010; J3490; J7120

== ENCOUNTER 2017-06-11 20:01 | Emergency (ER) | payer MEDICAID ==
--- NOTE | 2017-06-11 22:08 | ER Document Report ---
ED ENT - General Chief Complaint: Sore Throat Stated Complaint: SORE THROAT Time Seen by Provider: 06/11/17 21:47 Notes: Patient is a 26-year-old female presents emergency department complaining of a sore throat. Patient states that her symptoms started approximately 3 days ago. She also admits to associated nausea, headache as well as congestion. She denies any fevers or chills at home. She states that her throat feels scratchy and not like previous times and she said strep pharyngitis. States otherwise healthy female. She is a non-smoker TRAVEL OUTSIDE OF THE [place] IN LAST 30 DAYS: No - Related Data Allergies/Adverse Reactions: No Known Allergies Allergy (Verified 06/11/17 20:03) Past Medical History - Social History Smoking Status: Never Smoker Family History: None Patient has suicidal ideation: No Patient has homicidal ideation: No - Past Medical History Cardiac Medical History: Reports: Hx Hypertension - previous Denies: Hx Pulmonary Embolism, Hx Heart Murmur Pulmonary Medical History: Denies: Hx Asthma, Hx Sleep Apnea, Hx Tuberculosis Neurological Medical History: Denies: Hx Cerebrovascular Accident, Hx Seizures Endocrine Medical History: Denies: Hx Hyperthyroidism, Hx Hypothyroidism Renal/ Medical History: Denies: Hx Kidney Stones, Hx Ovarian Cysts, Hx Peritoneal Dialysis, Hx Pelvic Inflammatory Disease Malignancy Medical History: Denies: Hx Breast Cancer, Hx Cervical Cancer, Hx Ovarian Cancer GI Medical History: Denies: Hx Gastroesophageal Reflux Disease, Hx Hiatal Hernia , Hx Ulcer Musculoskeltal Medical History: Denies Hx Fibromyalgia Psychiatric Medical History: Denies: Hx Bipolar Disorder, Hx Depression, Hx Post Traumatic Stress Disorder , Hx Schizophrenia Traumatic Medical History: Denies: Hx Fractures Infectious Medical History: Denies: Hx HIV Past Surgical History: Reports: Hx Section, Hx Tonsillectomy Review of Systems - Review of Systems Constitutional: No symptoms reported EENT: See HPI Cardiovascular: No symptoms reported Respiratory: No symptoms reported Gastrointestinal: See HPI Genitourinary: No symptoms reported Female Genitourinary: No symptoms reported, Last menstrual period - 2 weeks ago. Patient is not sexually active -: Yes All other systems reviewed and negative Physical Exam - Vital signs Vitals: Temp Pulse Resp BP Pulse Ox 99.2 F 94 18 146/92 H 100 06/11/17 20:03 06/11/17 20:03 06/11/17 20:03 06/11/17 20:03 06/11/17 20:03 - Notes Notes: PHYSICAL EXAM GENERAL: Alert, interacts well. HEAD: Normocephalic, atraumatic. EYES: Pupils equal, round, and reactive to light. Extraocular movements intact. ENT: Oral mucosa moist, tongue midline. Uvula midline. Airway patent. No evidence of tonsillar enlargement, peritonsillar abscess, retropharyngeal abscess. NECK: Full range of motion. Supple. Trachea midline. LUNGS: Clear to auscultation bilaterally, no wheezes, rales, or rhonchi. No respiratory distress. HEART: Regular rate and rhythm. No murmurs, gallops, or rubs. ABDOMEN: Soft, nondistended, nontender. No guarding, rebound, or rigidity.. Bowel sounds present in all 4 quadrants. EXTREMITIES: Moves all 4 extremities spontaneously. No edema, radial and dorsalis pedis pulses 2/4 bilaterally. No cyanosis. NEUROLOGICAL: Alert and oriented x4. Normal speech. PSYCH: Normal affect, normal mood. SKIN: Warm, dry, normal turgor. No rashes or lesions noted. Course - Re-evaluation Re-evalutation: 06/11/17 22:31 Patient is a 26-year-old female hemodynamically stable, no acute distress afebrile. Rapid strep is negative. Patient tolerating p.o. without any difficulty. Vital signs are stable. Discharge home on [id number] regiment for URI. Otherwise patient to follow-up with primary care as needed. - Vital Signs Vital signs: Temp Pulse Resp BP Pulse Ox 99.2 F 94 18 146/92 H 100 06/11/17 20:03 06/11/17 20:03 06/11/17 20:03 06/11/17 20:03 06/11/17 20:03 Discharge - Discharge Clinical Impression: URI (upper respiratory infection) Qualifiers: URI type: unspecified viral URI Qualified Code(s): J06.9 - Acute upper respiratory infection, unspecified; B97.89 - Other viral agents as the cause of diseases classified elsewhere Condition: Good Disposition: HOME, SELF-CARE Instructions: Upper Respiratory Illness ([facility]), Sore Throat ([facility]), Acetaminophen Additional Instructions: Please purchase an [id number] antihistamine with decongestant such as Nadira-D or Claritin-D to help with your nasal congestion. Prescriptions: Ondansetron [Zofran Odt 4 mg Tablet] 1 - 2 tab PO Q4H PRN #15 tab.rapdis PRN Reason: For Nausea/Vomiting Forms: Return to Work
[2017-06-11] MEDS ORDERED: ONDANSETRON ODT 4 MG TAB (6 TAB/DSPK) PO PRN (22:34)
[2017-06-11 22:55] VITALS: BP 146/85
== END 2017-06-11 23:00 | disposition home or self-care (01) ==
LOC: ER 20:01
DX: J02.8 Acute pharyngitis due to other specified organisms (principal); B97.89 Other viral agents as the cause of diseases classified elsewhere; R11.0 Nausea; R51 Headache
CPT/HCPCS: 87070; 87880; 99283

== ENCOUNTER 2017-06-25 12:21 | Emergency (ER) | payer MEDICAID ==
[2017-06-25] MEDS ORDERED: HYDROCODONE/ACETAMINOPHEN 5-325 MG TABLET PO ONE (13:03)
[2017-06-25] MEDS ORDERED: METHOCARBAMOL 500 MG TABLET PO ONE (13:03)
[2017-06-25] MEDS ORDERED: BENZONATATE 100 MG CAPSULE PO ONE (13:04)
--- NOTE | 2017-06-25 13:18 | ER Document Report ---
ED Extremity Problem, Lower - General Chief Complaint: Leg Pain Stated Complaint: LEG PAIN Time Seen by Provider: 06/25/17 12:50 Mode of Arrival: Ambulatory Information source: Patient Notes: Patient is a 26-year-old female who presents to the ER today for 1 month of right lower hip pain radiating down the back of her right leg all the way to her toes. Patient states that it hurts worse whenever she has the leg propped up, feels better with any type of pressure put on the leg, hip or with walking. She denies any injury, diabetes, numbness or tingling, loss of bladder or bowel function. She was seen in urgent care and diagnosed with sciatica but states that Motrin and Flexeril, prednisone did not work at all. TRAVEL OUTSIDE OF THE [place] IN LAST 30 DAYS: No - Related Data Allergies/Adverse Reactions: No Known Allergies Allergy (Verified 06/11/17 20:03) Past Medical History - General Information source: Patient - Social History Smoking Status: Unknown if Ever Smoked Family History: None - Past Medical History Cardiac Medical History: Reports: Hx Hypertension - previous Denies: Hx Pulmonary Embolism, Hx Heart Murmur Pulmonary Medical History: Denies: Hx Asthma, Hx Sleep Apnea, Hx Tuberculosis Neurological Medical History: Denies: Hx Cerebrovascular Accident, Hx Seizures Endocrine Medical History: Denies: Hx Hyperthyroidism, Hx Hypothyroidism Renal/ Medical History: Denies: Hx Kidney Stones, Hx Ovarian Cysts, Hx Peritoneal Dialysis, Hx Pelvic Inflammatory Disease Malignancy Medical History: Denies: Hx Breast Cancer, Hx Cervical Cancer, Hx Ovarian Cancer GI Medical History: Denies: Hx Gastroesophageal Reflux Disease, Hx Hiatal Hernia , Hx Ulcer Musculoskeltal Medical History: Denies Hx Fibromyalgia Psychiatric Medical History: Denies: Hx Bipolar Disorder, Hx Depression, Hx Post Traumatic Stress Disorder , Hx Schizophrenia Traumatic Medical History: Denies: Hx Fractures Infectious Medical History: Denies: Hx HIV Past Surgical History: Reports: Hx Section, Hx Tonsillectomy Review of Systems - Review of Systems Constitutional: No symptoms reported EENT: No symptoms reported Cardiovascular: No symptoms reported Respiratory: No symptoms reported Gastrointestinal: No symptoms reported Genitourinary: No symptoms reported Female Genitourinary: No symptoms reported Musculoskeletal: See HPI Skin: No symptoms reported Hematologic/Lymphatic: No symptoms reported Neurological/Psychological: No symptoms reported Physical Exam - Vital signs Vitals: Temp Pulse BP Pulse Ox 98.4 F 97 139/79 H 99 06/25/17 12:33 06/25/17 12:33 06/25/17 12:33 06/25/17 12:33 - Notes Notes: PHYSICAL EXAMINATION: GENERAL: Uncomfortable appearing, but in no acute distress. HEAD: Atraumatic, normocephalic. EYES: Pupils equal round and reactive to light, extraocular movements intact, sclera anicteric, conjunctiva are normal. NECK: Normal range of motion, supple without lymphadenopathy LUNGS: CTAB and equal. No wheezes rales or rhonchi. HEART: Regular rate and rhythm without murmurs BACK: Right SI joint tenderness, no vertebral tenderness, normal ROM GI/: no CVA tenderness EXTREMITIES: Normal range of motion, no pitting edema. No cyanosis. NEUROLOGICAL: Cranial nerves grossly intact. Normal sensory/motor exams. PSYCH: Normal mood, normal affect. SKIN: Warm, Dry, normal turgor, no rashes or lesions noted Course - Vital Signs Vital signs: Temp Pulse Resp BP Pulse Ox 98.6 F 91 20 128/92 H 100 06/25/17 13:40 06/25/17 13:40 06/25/17 13:40 06/25/17 13:40 06/25/17 13:40 Discharge - Discharge Clinical Impression: Sciatica Qualifiers: Laterality: right Qualified Code(s): M54.31 - Sciatica, right side Condition: Stable Disposition: HOME, SELF-CARE Additional Instructions: Return immediately for any new or worsening symptoms. Follow up with primary care provider, call tomorrow to make followup appointment. Prescriptions: Hydrocodone/Acetaminophen [[place] 5-325 mg Tablet] 2 tab PO Q4 PRN #15 tab PRN Reason: Methocarbamol [Robaxin 500 mg Tablet] 1,000 mg PO BID PRN #40 tablet PRN Reason:
[2017-06-25 13:41] VITALS: BP 128/92
== END 2017-06-25 13:40 | disposition home or self-care (01) ==
LOC: ER 12:21
DX: M54.31 Sciatica, right side (principal)
CPT/HCPCS: 99283; J3490 ×2

== ENCOUNTER 2017-07-05 19:26 | Emergency (ER) | payer SELFPAY ==
[2017-07-05] MEDS ORDERED: FAMOTIDINE 20 MG TABLET PO ONE (19:37)
[2017-07-05] MEDS ORDERED: ONDANSETRON 4 MG TAB.RAPDIS SL ONE (19:37)
--- NOTE | 2017-07-05 19:37 | ER Document Report ---
ED Medical Screen (RME) - General Chief Complaint: Abdominal Pain Stated Complaint: ABDOMINAL PAIN Time Seen by Provider: 07/05/17 19:35 Mode of Arrival: Ambulatory Information source: Patient TRAVEL OUTSIDE OF THE [place] IN LAST 30 DAYS: No - HPI Patient complains to provider of: Abdominal pain, nausea and diarrhea Notes: 07/05/17 19:37 Patient is a 26-year-old female presenting to the emergency room today complaining of epigastric abdominal pain with nausea and diarrhea, she denies any dysuria, no vomiting, no fever, no sick contacts - Related Data Allergies/Adverse Reactions: No Known Allergies Allergy (Verified 07/05/17 19:30) Past Medical History - Social History Chew tobacco use (# tins/day): No Frequency of alcohol use: None Drug Abuse: None - Past Medical History Cardiac Medical History: Reports: Hx Hypertension - previous Denies: Hx Pulmonary Embolism, Hx Heart Murmur Pulmonary Medical History: Denies: Hx Asthma, Hx Sleep Apnea, Hx Tuberculosis Neurological Medical History: Denies: Hx Cerebrovascular Accident, Hx Seizures Endocrine Medical History: Denies: Hx Hyperthyroidism, Hx Hypothyroidism Renal/ Medical History: Denies: Hx Kidney Stones, Hx Ovarian Cysts, Hx Peritoneal Dialysis, Hx Pelvic Inflammatory Disease Malignancy Medical History: Denies: Hx Breast Cancer, Hx Cervical Cancer, Hx Ovarian Cancer GI Medical History: Denies: Hx Gastroesophageal Reflux Disease, Hx Hiatal Hernia , Hx Ulcer Musculoskeltal Medical History: Denies Hx Fibromyalgia Psychiatric Medical History: Denies: Hx Bipolar Disorder, Hx Depression, Hx Post Traumatic Stress Disorder , Hx Schizophrenia Traumatic Medical History: Denies: Hx Fractures Infectious Medical History: Denies: Hx HIV Past Surgical History: Reports: Hx Section, Hx Tonsillectomy - Immunizations Hx Diphtheria, Pertussis, Tetanus Vaccination: Yes - 2014 History of Influenza Vaccine for 06/2017 - 11/2017 Season: No Physical Exam - Vital signs Vitals: Temp Pulse Resp BP Pulse Ox 99.5 F 115 H 20 137/81 H 98 07/05/17 19:32 07/05/17 19:32 07/05/17 19:32 07/05/17 19:32 07/05/17 19:32 Course - Vital Signs Vital signs: Temp Pulse Resp BP Pulse Ox 99.5 F 115 H 20 137/81 H 98 07/05/17 19:32 07/05/17 19:32 07/05/17 19:32 07/05/17 19:32 07/05/17 19:32
[2017-07-05 20:35] LABS: ABSOLUTE EOSINOPHILS # (AUTO) 0.1 10^3/uL (0.0-0.6); ABSOLUTE LYMPHOCYTES (AUTO) 1.1 10^3/uL (0.5-4.7); ABSOLUTE MONOCYTES (AUTO) 0.3 10^3/uL (0.1-1.4); ABSOLUTE NEUT (AUTO) 4.1 10^3/uL (1.7-8.2); BASOPHILS % (AUTO) 0.3 % (0-2); EOSINOPHILS % (AUTO) 1.2 % (0-6); HEMATOCRIT 38.5 % (36.0-47.0); HEMOGLOBIN 12.6 g/dL (12.0-15.5); HGB HCT DIFFERENCE -0.7; LYMPHOCYTES % (AUTO) 19.1 % (13-45); MEAN CORPUSCULAR HGB CONC 32.7 g/dL (32.0-36.0); MEAN CORPUSCULAR VOLUME 80 fl (80-97); MONOCYTES % (AUTO) 4.8 % (3-13); RED BLOOD COUNT 4.85 10^6/uL (3.72-5.28); RED CELL DISTRIBUTION WIDTH 16.1 % (11.5-14.0); SEGMENTED NEUTROPHILS % (AUTO) 74.6 % (42-78); WHITE BLOOD COUNT 5.6 10^3/uL (4.0-10.5)
[2017-07-05 20:41] LABS: APPEARANCE,URINE SLIGHTLY-CLOUDY; BILIRUBIN,URINE NEGATIVE (NEGATIVE); GLUCOSE, URINE NEGATIVE (NEGATIVE); KETONES,URINE NEGATIVE (NEGATIVE); LEUKOCYTE ESTERASE,URINE NEGATIVE (NEGATIVE); NITRITE,URINE NEGATIVE (NEGATIVE); PROTEIN,URINE 30 mg/dL (NEGATIVE); URINE SPECIFIC GRAVITY 1.032
[2017-07-05 20:46] LABS: ALANINE AMINOTRANSFERASE 30 U/L (9-52); ALBUMIN 4.5 g/dL (3.5-5.0); ALKALINE PHOSPHATASE 94 U/L (38-126); ANION GAP 16 (5-19); ASPARTATE AMINO TRANSFERASE 14 U/L (14-36); BILIRUBIN,DIRECT 0.3 mg/dL (0.0-0.4); BILIRUBIN,TOTAL 1.1 mg/dL (0.2-1.3); BLOOD UREA NITROGEN 8 mg/dL (7-20); CALCIUM 9.8 mg/dL (8.4-10.2); CARBON DIOXIDE 24 mmol/L (22-30); CHLORIDE 104 mmol/L (98-107); CREATININE RESULT 0.61 mg/dL (0.52-1.25); GLUCOSE 104 mg/dL (75-110); LIPASE 85.4 U/L (23-300); POTASSIUM 4.1 mmol/L (3.6-5.0); SODIUM 144.1 mmol/L (137-145); TOTAL PROTEIN 8.1 g/dL (6.3-8.2)
[2017-07-05] MEDS ORDERED: MAG HYDROX/AL HYDROX/SIMETH SUSP 30 ML UDCUP PO ONE (21:26)
[2017-07-05] MEDS ORDERED: ACETAMINOPHEN 325 MG TABLET PO ONE (21:26)
[2017-07-05] MEDS ORDERED: LIDOCAINE 2% VISCOUS SOLN 20 ML UDCUP PO ONE (21:26)
--- NOTE | 2017-07-05 21:26 | ER Document Report ---
ED General - General Chief Complaint: Abdominal Pain Stated Complaint: ABDOMINAL PAIN Time Seen by Provider: 07/05/17 19:35 Mode of Arrival: Ambulatory Notes: Patient is a 26-year-old female presents emergency department complaining of epigastric pain. Patient states that she has had these symptoms for about a day. Admits to nausea, decreased appetite mild headache. Patient states she has not been eating much or drinking many fluids. Otherwise denies any vomiting , right upper quadrant pain, fevers or chills. TRAVEL OUTSIDE OF THE [place] IN LAST 30 DAYS: No - Related Data Allergies/Adverse Reactions: No Known Allergies Allergy (Verified 07/05/17 19:30) Past Medical History - General Information source: Patient - Social History Smoking Status: Never Smoker Chew tobacco use (# tins/day): No Frequency of alcohol use: None Drug Abuse: None Family History: None - Past Medical History Cardiac Medical History: Reports: Hx Hypertension - previous Denies: Hx Pulmonary Embolism, Hx Heart Murmur Pulmonary Medical History: Denies: Hx Asthma, Hx Sleep Apnea, Hx Tuberculosis Neurological Medical History: Denies: Hx Cerebrovascular Accident, Hx Seizures Endocrine Medical History: Denies: Hx Hyperthyroidism, Hx Hypothyroidism Renal/ Medical History: Denies: Hx Kidney Stones, Hx Ovarian Cysts, Hx Peritoneal Dialysis, Hx Pelvic Inflammatory Disease Malignancy Medical History: Denies: Hx Breast Cancer, Hx Cervical Cancer, Hx Ovarian Cancer GI Medical History: Denies: Hx Gastroesophageal Reflux Disease, Hx Hiatal Hernia , Hx Ulcer Musculoskeltal Medical History: Denies Hx Fibromyalgia Psychiatric Medical History: Denies: Hx Bipolar Disorder, Hx Depression, Hx Post Traumatic Stress Disorder , Hx Schizophrenia Traumatic Medical History: Denies: Hx Fractures Infectious Medical History: Denies: Hx HIV Past Surgical History: Reports: Hx Section, Hx Tonsillectomy - Immunizations Hx Diphtheria, Pertussis, Tetanus Vaccination: Yes - 2014 Review of Systems - Review of Systems Constitutional: No symptoms reported Cardiovascular: No symptoms reported Respiratory: No symptoms reported Gastrointestinal: See HPI -: Yes All other systems reviewed and negative Physical Exam - Vital signs Vitals: Temp Pulse Resp BP Pulse Ox 99.5 F 115 H 20 137/81 H 98 07/05/17 19:32 07/05/17 19:32 07/05/17 19:32 07/05/17 19:32 07/05/17 19:32 - Notes Notes: PHYSICAL EXAM GENERAL: Alert, interacts well. LUNGS: Clear to auscultation bilaterally, no wheezes, rales, or rhonchi. No respiratory distress. HEART: Regular rate and rhythm. No murmurs, gallops, or rubs. ABDOMEN: Soft, nondistended, nontender. No guarding, rebound, or rigidity.. Bowel sounds present in all 4 quadrants. EXTREMITIES: Moves all 4 extremities spontaneously. No edema, radial and dorsalis pedis pulses 2/4 bilaterally. No cyanosis. NEUROLOGICAL: Alert and oriented x4. Normal speech. PSYCH: Normal affect, normal mood. SKIN: Warm, dry, normal turgor. No rashes or lesions noted. Course - Re-evaluation Re-evalutation: 07/05/17 22:00 Presentation of an overall well-appearing patient in no acute distress with complaints of nausea. This is consistent with likely viral gastroenteritis. Patient has no abdominal tenderness on exam and specifically no tenderness in the RLQ, LLQ, RUQ. Overall well hydrated on exam. Able to tolerate oral intake here in the emergency department. Low clinical suspicion for any acute life-threatening etiology based on exam and history including acute cholecystitis, SBO, appendicitis, nephrolithiasis, or pylonephritis. CMP without evidence of acute hepatitis or significant dehydration. Will plan for discharge at this time with return precautions and followup recommendations. - Vital Signs Vital signs: Temp Pulse Resp BP Pulse Ox 99.5 F 99 17 130/79 H 99 07/05/17 19:32 07/05/17 22:23 07/05/17 22:23 07/05/17 22:23 07/05/17 22:23 - Laboratory Result Diagrams: 07/05/17 20:09 07/05/17 20:09 Laboratory results interpreted by me: 07/05/17 07/05/17 20:09 20:09 MCH 26.0 L RDW 16.1 H Urine Protein 30 H Urine Urobilinogen 2.0 H Discharge - Discharge Clinical Impression: Epigastric pain Condition: Good Disposition: HOME, SELF-CARE Additional Instructions: Your symptoms appear to be most consistent with stomach or upper intestinal irritation. Please begin taking famotidine 40 mg in the morning and 40 mg at night. This medicine can be purchased directly [id number]. You may also take medicine such as Pepto-Bismol or Tums to assist with your pain. Please return to emergency department immediately if you have worsening of your pain, shortness of breath, vomiting, become unable to exert yourself due to pain or difficulty breathing, you pass out, or have any pain that radiates into your arms, jaw, or back. Please also return if you have any additional symptoms that are concerning to you. Prescriptions: Ondansetron [Zofran Odt 4 mg Tablet] 1 - 2 tab PO Q4H PRN #15 tab.rapdis PRN Reason: For Nausea/Vomiting Forms: Return to Work
[2017-07-05 22:25] VITALS: BP 130/79
== END 2017-07-05 22:23 | disposition home or self-care (01) ==
LOC: ER 19:26
DX: R10.13 Epigastric pain (principal); R11.0 Nausea; R51 Headache
CPT/HCPCS: 99284; 36415; 87086; 83690; 85025; 81025; 80053; 81001; S0119; J3490

== ENCOUNTER 2017-08-05 13:44 | Emergency (ER) | payer SELFPAY ==
--- NOTE | 2017-08-05 14:36 | ER Document Report ---
ED Medical Screen (RME) - General Chief Complaint: Chest Pain Stated Complaint: BREATHING ISSUES Time Seen by Provider: 08/05/17 14:34 Notes: Patient states she had the onset today of substernal chest pain with shortness of breath. She denies any cough or cold symptoms. She denies any tobacco use or hormone use. She denies any chronic medical problems or surgeries. TRAVEL OUTSIDE OF THE [place] IN LAST 30 DAYS: No - Related Data Allergies/Adverse Reactions: No Known Allergies Allergy (Verified 08/05/17 13:58) Home Medications: Current Home Medications No Home Medications 08/05/17 [History] Past Medical History - Social History Chew tobacco use (# tins/day): No Frequency of alcohol use: None Drug Abuse: None - Past Medical History Cardiac Medical History: Reports: Hx Hypertension - previous Denies: Hx Pulmonary Embolism, Hx Heart Murmur Pulmonary Medical History: Denies: Hx Asthma, Hx Sleep Apnea, Hx Tuberculosis Neurological Medical History: Denies: Hx Cerebrovascular Accident, Hx Seizures Endocrine Medical History: Denies: Hx Hyperthyroidism, Hx Hypothyroidism Renal/ Medical History: Denies: Hx Kidney Stones, Hx Ovarian Cysts, Hx Peritoneal Dialysis, Hx Pelvic Inflammatory Disease Malignancy Medical History: Denies: Hx Breast Cancer, Hx Cervical Cancer, Hx Ovarian Cancer GI Medical History: Denies: Hx Gastroesophageal Reflux Disease, Hx Hiatal Hernia , Hx Ulcer Musculoskeltal Medical History: Denies Hx Fibromyalgia Psychiatric Medical History: Denies: Hx Bipolar Disorder, Hx Depression, Hx Post Traumatic Stress Disorder , Hx Schizophrenia Traumatic Medical History: Denies: Hx Fractures Infectious Medical History: Denies: Hx HIV Past Surgical History: Reports: Hx Section, Hx Tonsillectomy - Immunizations Hx Diphtheria, Pertussis, Tetanus Vaccination: Yes - 2014 History of Influenza Vaccine for 06/2017 - 11/2017 Season: No Physical Exam - Vital signs Vitals: Temp Pulse Resp BP Pulse Ox 98.5 F 107 H 16 144/88 H 100 08/05/17 13:58 08/05/17 13:58 08/05/17 13:58 08/05/17 13:58 08/05/17 13:58 Course - Vital Signs Vital signs: Temp Pulse Resp BP Pulse Ox 98.5 F 107 H 16 144/88 H 100 08/05/17 13:58 08/05/17 13:58 08/05/17 13:58 08/05/17 13:58 08/05/17 13:58
[2017-08-05 15:11] LABS: ABSOLUTE EOSINOPHILS # (AUTO) 0.1 10^3/uL (0.0-0.6); ABSOLUTE LYMPHOCYTES (AUTO) 2.1 10^3/uL (0.5-4.7); ABSOLUTE MONOCYTES (AUTO) 0.5 10^3/uL (0.1-1.4); ABSOLUTE NEUT (AUTO) 4.3 10^3/uL (1.7-8.2); BASOPHILS % (AUTO) 0.6 % (0-2); EOSINOPHILS % (AUTO) 1.6 % (0-6); HEMOGLOBIN 10.4 g/dL (12.0-15.5); HGB HCT DIFFERENCE -0.8; LYMPHOCYTES % (AUTO) 30.5 % (13-45); MEAN CORPUSCULAR HEMOGLOBIN 25.6 pg (27.0-33.4); MEAN CORPUSCULAR HGB CONC 32.5 g/dL (32.0-36.0); MEAN CORPUSCULAR VOLUME 79 fl (80-97); MONOCYTES % (AUTO) 6.9 % (3-13); RED BLOOD COUNT 4.06 10^6/uL (3.72-5.28); RED CELL DISTRIBUTION WIDTH 16.4 % (11.5-14.0); SEGMENTED NEUTROPHILS % (AUTO) 60.4 % (42-78); WHITE BLOOD COUNT 7.1 10^3/uL (4.0-10.5)
[2017-08-05 15:18] LABS: APPEARANCE,URINE SLIGHTLY-CLOUDY; BILIRUBIN,URINE NEGATIVE (NEGATIVE); GLUCOSE, URINE NEGATIVE (NEGATIVE); KETONES,URINE NEGATIVE (NEGATIVE); LEUKOCYTE ESTERASE,URINE NEGATIVE (NEGATIVE); NITRITE,URINE NEGATIVE (NEGATIVE); PROTEIN,URINE NEGATIVE (NEGATIVE); URINE SPECIFIC GRAVITY 1.029; UROBILINOGEN,URINE NEGATIVE mg/dL (<2.0)
--- NOTE | 2017-08-05 15:22 | RADIOLOGY REPORT (SQ) ---
EXAM DESCRIPTION: CHEST PA/LAT COMPLETED DATE/TIME: 08/05/2017 3:09 pm REASON FOR STUDY: sob/cp COMPARISON: Chest CT 07/08/2016 EXAM PARAMETERS: NUMBER OF VIEWS: two views TECHNIQUE: Digital Frontal and Lateral radiographic views of the chest acquired. RADIATION DOSE: NA LIMITATIONS: none FINDINGS: LUNGS AND PLEURA: No opacities, masses or pneumothorax. No pleural effusion. MEDIASTINUM AND HILAR STRUCTURES: No masses or contour abnormalities. HEART AND VASCULAR STRUCTURES: Heart normal size. No evidence for failure. BONES: No acute findings. HARDWARE: None in the chest. OTHER: No other significant finding. IMPRESSION: NO SIGNIFICANT RADIOGRAPHIC FINDING IN THE CHEST. TECHNICAL DOCUMENTATION: JOB ID: [id number] [employer]- All Rights Reserved
[2017-08-05 15:34] LABS: ALANINE AMINOTRANSFERASE 28 U/L (9-52); ALKALINE PHOSPHATASE 88 U/L (38-126); ANION GAP 12 (5-19); ASPARTATE AMINO TRANSFERASE 15 U/L (14-36); BILIRUBIN,DIRECT 0.3 mg/dL (0.0-0.4); BILIRUBIN,TOTAL 0.5 mg/dL (0.2-1.3); BLOOD UREA NITROGEN 12 mg/dL (7-20); CALCIUM 9.2 mg/dL (8.4-10.2); CARBON DIOXIDE 27 mmol/L (22-30); CHLORIDE 105 mmol/L (98-107); CREATININE RESULT 0.55 mg/dL (0.52-1.25); GLUCOSE 76 mg/dL (75-110); POTASSIUM 4.3 mmol/L (3.6-5.0); TOTAL PROTEIN 7.2 g/dL (6.3-8.2)
--- NOTE | 2017-08-05 16:08 | RADIOLOGY REPORT (SQ) ---
EXAM DESCRIPTION: CHEST PA/LAT COMPLETED DATE/TIME: 08/05/2017 3:56 pm REASON FOR STUDY: SOB COMPARISON: CT angio chest 07/08/2016 EXAM PARAMETERS: NUMBER OF VIEWS: two views TECHNIQUE: Digital Frontal and Lateral radiographic views of the chest acquired. RADIATION DOSE: NA LIMITATIONS: none FINDINGS: LUNGS AND PLEURA: No opacities, masses or pneumothorax. No pleural effusion. MEDIASTINUM AND HILAR STRUCTURES: No masses or contour abnormalities. HEART AND VASCULAR STRUCTURES: Heart normal size. No evidence for failure. BONES: No acute findings. HARDWARE: None in the chest. OTHER: No other significant finding. IMPRESSION: NO SIGNIFICANT RADIOGRAPHIC FINDING IN THE CHEST. TECHNICAL DOCUMENTATION: JOB ID: [id number] [employer]- All Rights Reserved
--- NOTE | 2017-08-05 16:37 | ER Document Report ---
ED General - General Mode of Arrival: Ambulatory Information source: Patient TRAVEL OUTSIDE OF THE [place] IN LAST 30 DAYS: No - HPI Onset: This afternoon Onset/Duration: Sudden Quality of pain: Sharp Associated symptoms: Nausea Exacerbated by: Movement - side to side Relieved by: Other - bending forward <LUANA HAMM - Last Filed: 08/05/17 16:55> <THERESA JOHNSON - Last Filed: 08/05/17 19:13> - General Chief Complaint: Chest Pain Stated Complaint: BREATHING ISSUES Time Seen by Provider: 08/05/17 14:34 Notes: Patient is a 26 year old female presenting to the emergency department complaining of chest pain onset today. Patient describes the pain as a sharp pain with a severity of a 5/5. Patient states that she was mopping the floor when she started having the chest pain. Patient states her pain is exacerbated when moving side to side as but relieved when she bends forward. Patients states she also as some nausea. Patient denies any cough, wheezing, or vomiting. (LUANA HAMM) - Related Data Allergies/Adverse Reactions: No Known Allergies Allergy (Verified 08/05/17 13:58) Home Medications: Current Home Medications No Home Medications 08/05/17 [History] Past Medical History - General Information source: Patient - Social History Smoking Status: Never Smoker Chew tobacco use (# tins/day): No Frequency of alcohol use: None Drug Abuse: None Family History: None Patient has suicidal ideation: No Patient has homicidal ideation: No - Past Medical History Cardiac Medical History: Reports: Hx Hypertension - previous Past Surgical History: Reports: Hx Section, Hx Tonsillectomy - Immunizations Hx Diphtheria, Pertussis, Tetanus Vaccination: Yes - 2014 <LUANA HAMM - Last Filed: 08/05/17 16:55> Review of Systems - Review of Systems Constitutional: No symptoms reported EENT: No symptoms reported Cardiovascular: See HPI, Chest pain Respiratory: See HPI. denies: Cough, Wheezing Gastrointestinal: See HPI, Nausea. denies: Vomiting Genitourinary: No symptoms reported Female Genitourinary: No symptoms reported Musculoskeletal: No symptoms reported Skin: No symptoms reported Hematologic/Lymphatic: No symptoms reported Neurological/Psychological: No symptoms reported -: Yes All other systems reviewed and negative <LUANA HAMM - Last Filed: 08/05/17 16:55> Physical Exam <LUANA HAMM - Last Filed: 08/05/17 16:55> <THERESA JOHNSON - Last Filed: 08/05/17 19:13> - Vital signs Vitals: Temp Pulse Resp BP Pulse Ox 98.5 F 107 H 16 144/88 H 100 08/05/17 13:58 08/05/17 13:58 08/05/17 13:58 08/05/17 13:58 08/05/17 13:58 - Notes Notes: GENERAL: Alert, interacts well. No acute distress. HEAD: Normocephalic, atraumatic. EYES: Pupils equal, round, and reactive to light. Extraocular movements intact. ENT: Oral mucosa moist, tongue midline. NECK: Full range of motion. Supple. Trachea midline. LUNGS: Clear to auscultation bilaterally, no wheezes, rales, or rhonchi. No respiratory distress. HEART: Regular rate and rhythm. No murmurs, gallops, or rubs. ABDOMEN: Minimal tenderness to palpation to the epigastrium. Non-distended. Bowel sounds present in all 4 quadrants. Obese. EXTREMITIES: Moves all 4 extremities spontaneously. No edema, radial and dorsalis pedis pulses 2/4 bilaterally. No cyanosis. NEUROLOGICAL: Alert and oriented x3. Normal speech. PSYCH: Normal affect, normal mood. SKIN: Warm, dry, normal turgor. No rashes or lesions noted. (LUANA HAMM) Course - Laboratory Result Diagrams: 08/05/17 14:50 08/05/17 14:50 <LUANA HAMM - Last Filed: 08/05/17 16:55> - Laboratory Result Diagrams: 08/05/17 14:50 08/05/17 14:50 <THERESA JOHNSON - Last Filed: 08/05/17 19:13> - Re-evaluation Re-evalutation: 08/05/17 16:40 CBC shows mild anemia consistent with childbearing age with hemoglobin 10.4, chemistries unremarkable, cardiac enzymes negative, urinalysis unremarkable, patient is not , chest x-ray shows no pneumonia or pneumothorax. Very low suspicion for pulmonary embolism in this patient as she is non-smoker not taking any hormones. EKG is almost identical to prior EKG from about 1 year ago. (THERESA JOHNSON) - Vital Signs Vital signs: Temp Pulse Resp BP Pulse Ox 98.5 F 93 16 127/81 H 100 08/05/17 13:58 08/05/17 17:09 08/05/17 17:09 08/05/17 17:09 08/05/17 17:09 - Laboratory Laboratory results interpreted by me: 08/05/17 08/05/17 14:50 14:50 Hgb 10.4 L Hct 32.0 L MCV 79 L MCH 25.6 L RDW 16.4 H Urine Ascorbic Acid 40 H - EKG Interpretation by Me Additional EKG results interpreted by me: 08/05/17 16:40 EKG shows sinus rhythm at a rate of 93, normal axis, normal intervals, no ST segment elevations or depressions, isolated T-wave inversions in lead III are unchanged from prior EKG on 07/07/2016 per my interpretation. (THERESA JOHNSON) Discharge <LUANA HAMM - Last Filed: 08/05/17 16:55> <THERESA JOHNSON - Last Filed: 08/05/17 19:13> - Discharge Clinical Impression: Essential hypertension, Musculoskeletal chest pain Condition: Stable Disposition: HOME, SELF-CARE Instructions: Chest Pain of Unclear Cause ([facility]) Additional Instructions: Please use ibuprofen (Motrin or Advil) 600-800 mg every 8 hours as needed for pain. You may also use acetaminophen (Tylenol) 1000 mg every 4-6 hours as needed for pain. Please be aware that many medications contain acetaminophen, do not exceed a total of 1000 mg of acetaminophen every 6 hours. Return for fever. Forms: Elevated Blood Pressure, Return to Work Scribe Attestation: 08/05/17 19:12 I personally performed the services described in the documentation, reviewed and edited the documentation which was dictated to the scribe in my presence, and it accurately records my words and actions. (THERESA JOHNSON) Scribe Documentation - Scribe Written by Mat:: Mat Lugo, 08/05/2017 17:00 acting as scribe for :: Carrillo <LUANA HAMM - Last Filed: 08/05/17 16:55>
[2017-08-05 17:15] VITALS: BP 127/81
--- NOTE | 2017-08-06 00:10 | EKG REPORT ---
SEVERITY:- ABNORMAL ECG - SINUS RHYTHM PROBABLE LEFT VENTRICULAR HYPERTROPHY BORDERLINE T ABNORMALITIES, INFERIOR LEADS : Confirmed by: Viviane Bernal 06-Aug-2017 00:09:41
== END 2017-08-05 17:20 | disposition home or self-care (01) ==
LOC: ER 13:44
DX: R07.89 Other chest pain (principal); I10 Essential (primary) hypertension; R11.0 Nausea; R10.816 Epigastric abdominal tenderness; D64.9 Anemia, unspecified
CPT/HCPCS: 36415; 71020; 80053; 81001; 81025; 84484; 85025; 93005; 93010; 99285

== ENCOUNTER 2017-09-23 14:30 | Emergency (ER) | payer SELFPAY ==
--- NOTE | 2017-09-23 16:47 | ER Document Report ---
ED Respiratory Problem - General Chief Complaint: Cough Stated Complaint: NAUSEA,VOMITING,BACK PAIN Time Seen by Provider: 09/23/17 16:07 Mode of Arrival: Ambulatory Information source: Patient Notes: 27-year-old female presents to ED for cough cold congestion with vomiting due to cough. She has some discomfort from cough and denies any fevers symptoms have been for 2 days. TRAVEL OUTSIDE OF THE [place] IN LAST 30 DAYS: No - HPI Patient complains to provider of: Cough Onset: Other - 2 days Duration: Continuous Initiating Event: URI Quality of pain: Achy Severity: Moderate Pain Level: 2 Associated symptoms: Congestion, Cough, PND, Runny nose, Sinus pain/pressure, Sore Throat Similar symptoms previously: Yes Recently seen / treated by doctor: No - Related Data Allergies/Adverse Reactions: No Known Allergies Allergy (Verified 09/23/17 14:31) Past Medical History - General Information source: Patient - Social History Smoking Status: Never Smoker Chew tobacco use (# tins/day): No Frequency of alcohol use: None Drug Abuse: None Occupation: [employer] Lives with: Alone - children Family History: CAD, CVA, Hyperlipidemia, Hypertension. denies: Arthritis, COPD , DM, Malignancy, Thyroid Disfunction Patient has suicidal ideation: No Patient has homicidal ideation: No - Past Medical History Cardiac Medical History: Reports: Hx Hypertension - previous Pulmonary Medical History: Reports: None EENT Medical History: Reports: None Neurological Medical History: Reports: None Endocrine Medical History: Reports: None Renal/ Medical History: Reports: None Malignancy Medical History: Reports: None GI Medical History: Reports: None Musculoskeltal Medical History: Reports None Skin Medical History: Reports None Psychiatric Medical History: Reports: None Traumatic Medical History: Reports: None Infectious Medical History: Reports: None Past Surgical History: Reports: Hx Section, Hx Tonsillectomy - Immunizations Hx Diphtheria, Pertussis, Tetanus Vaccination: Yes - 2014 Review of Systems - Review of Systems Constitutional: No symptoms reported EENT: No symptoms reported Cardiovascular: No symptoms reported Respiratory: No symptoms reported Gastrointestinal: No symptoms reported Genitourinary: No symptoms reported Female Genitourinary: No symptoms reported Musculoskeletal: No symptoms reported Skin: No symptoms reported Hematologic/Lymphatic: No symptoms reported Neurological/Psychological: No symptoms reported Physical Exam - Vital signs Vitals: Temp Pulse Resp BP Pulse Ox 99.1 F 107 H 18 144/78 H 100 09/23/17 14:40 09/23/17 14:40 09/23/17 14:40 09/23/17 14:40 09/23/17 14:40 Interpretation: Normal - General General appearance: Appears well, Alert - HEENT Head: Normocephalic, Atraumatic Eyes: Normal Pupils: PERRL Ears: Normal External canal: Normal Tympanic membrane: Serous effusion Sinus: Frontal, Mastoid, Tenderness Nasal: Purulent discharge, Swelling Mouth/Lips: Normal Pharynx: Post nasal drainage Neck: Normal - Respiratory Respiratory status: No respiratory distress Chest status: Nontender Breath sounds: Nonproductive cough. No: Rales, Rhonchi, Stridor, Wheezing Chest palpation: Normal - Cardiovascular Rhythm: Regular Heart sounds: Normal auscultation Murmur: No - Abdominal Inspection: Normal Distension: No distension Bowel sounds: Normal Tenderness: Nontender Organomegaly: No organomegaly - Back Back: Normal, Nontender - Extremities General upper extremity: Normal inspection, Nontender, Normal color, Normal ROM , Normal temperature General lower extremity: Normal inspection, Nontender, Normal color, Normal ROM , Normal temperature, Normal weight bearing. No: Claribel's sign - Neurological Neuro grossly intact: Yes Cognition: Normal Orientation: AAOx4 Anabel Coma Scale Eye Opening: Spontaneous Anabel Coma Scale Verbal: Oriented Cyndi Coma Scale Motor: Obeys Commands Cyndi Coma Scale Total: 15 Speech: Normal Motor strength normal: LUE, RUE, LLE, RLE Sensory: Normal - Psychological Associated symptoms: Normal affect, Normal mood - Skin Skin Temperature: Warm Skin Moisture: Dry Skin Color: Normal Course - Vital Signs Vital signs: Temp Pulse Resp BP Pulse Ox 99.3 F 102 H 16 139/57 H 100 09/23/17 16:52 09/23/17 16:52 09/23/17 16:52 09/23/17 16:52 09/23/17 16:52 Discharge - Discharge Clinical Impression: URI (upper respiratory infection) Qualifiers: URI type: unspecified URI Qualified Code(s): J06.9 - Acute upper respiratory infection, unspecified Nausea & vomiting Qualifiers: Vomiting type: unspecified Vomiting Intractability: non-intractable Qualified Code(s): R11.2 - Nausea with vomiting, unspecified Condition: Stable Disposition: HOME, SELF-CARE Additional Instructions: UPPER RESPIRATORY ILLNESS: You have a viral infection of the respiratory passages -- a "cold." This common infection causes nasal congestion, drainage, and often sore throat and cough. It is highly contagious. The disease usually lasts about 10 to 14 days. There is no "cure" for the viral infection -- it must run its course. If there is a complication, such as bacterial infection in the nose, sinuses, middle ear, or bronchial tubes, antibiotics may be required. The antibiotics won't affect the virus. Drink plenty of fluids. A humidifier may help. An expectorant medication or decongestant may make you more comfortable. Use acetaminophen or ibuprofen for fever or aches. See the doctor if fever persists over two days, if there is any significant worsening of your symptoms, or if you simply fail to improve as expected. VOMITING: Vomiting (or nausea without vomiting) can be caused by many other different problems. It can mean that something's wrong with the stomach, such as ulcers or inflammation or the intestinal tract, such as appendicitis. But it can also be a symptom of a problem that has nothing to do with the stomach or intestines. Vomiting is common with severe headaches, earaches, tonsillitis, and kidney infections, etc. We see it with pneumonia or heart attacks. Drugs can cause nausea and vomiting. Many abdominal problems cause vomiting; for example, gallstones, kidney stones, pancreatitis, and intestinal obstruction ( blocked bowels). In most cases, curing the vomiting depends on fixing the problem that caused it. For temporary relief, we may use an anti-nausea medicine. For home use, we can prescribe suppositories, chewable pills, pills that dissolve in the mouth, or liquid anti-nausea drugs. If the vomiting seems to be caused by a problem in the stomach, acid-suppressing drugs may be prescribed as well. It's important to avoid dehydration. Sip small amounts of clear liquids ( soft drinks, tea, broth, etc) . Try to take fluids frequently even if you are vomiting to prevent dehydration. Take increasing amounts of fluid and when liquids are being consumed successfully, advance to small amounts of bland food (toast, soups, mashed potatoes, etc.) until you are able to resume a regular diet. Avoid aspirin, tobacco, and alcohol. If the vomiting worsens, if the problem that's making you vomit worsens, or if there's evidence of bleeding in the stomach (such as black, tarry stool, or bloody or black vomit), you should return immediately. Also, return if abdominal pain worsens or becomes localized to one area or you develop high fever. Call your doctor if you aren't improved in 24 hours. VIRAL SYNDROME: The physician has diagnosed a viral infection. Viruses not only cause "colds," but can cause many different symptoms including generalized aching, fever, headache, cough, diarrhea, nausea, vomiting, and fatigue. The treatment, for the most part, is simply relief of symptoms. This means that antibiotics are usually not given. Rest, fluids, pain medications and, occasionally, medication for the specific symptoms that are most bothersome will be prescribed. Use good handwashing to avoid passing the virus to others. Shared toys should be cleaned with disinfectant. Clean the toilets, sinks, and counter surfaces in bathrooms. Launder clothing in hot water. Contact the physician if you develop any new or unusual symptoms such as severe headache, stiff neck, high fever, chest pain, productive cough, or shortness of breath. You should be rechecked if you don't see marked improvement within seven to 10 days. ANTINAUSEA MEDICATION: You have been given a medication to suppress nausea and vomiting. This type of medication can be given as a shot, pill, or suppository. It will usually last for many hours. Pills and shots usually last six to eight hours. For the typical illness, only one or two doses of the medication may be necessary. Mild lightheadedness may occur. This type of medicine can cause drowsiness. Do not drive or operate dangerous machinery while under its influence. Do not mix with alcohol. See your doctor at once if you have muscle spasms or tightness, or uncontrollable motions (particularly of the neck, mouth, or jaw). Persistent vomiting or severe lightheadedness should also be evaluated by the physician. DECONGESTANT MEDICATION: A decongestant medicine has been prescribed. Often this medicine is combined in the same tablet with an antihistamine or expectorant. This type of medicine is helpful in treating a bad cold or sinus condition, as well as in treatment of the nasal congestion of hay fever. It is not of much benefit for lung infections. Decongestant medicines are related to stimulants. They can cause an increase in blood pressure and heart rate. Persons with heart disease and high blood pressure should not take decongestants without discussing this with the physician. If you develop palpitations, chest pain, headache, or tremors, stop the medicine and consult your physician. COUGH-SUPPRESSANT & EXPECTORANT MEDICATION: You are to use a cough medication as needed for relief of symptoms. This medicine is a combination of an expectorant (to make the mucous thinner and more easily "coughed up") and a cough suppressant (to reduce the frequency of coughing). The cough-suppressant medicine is related to narcotics. You may experience mild nausea and sleepiness. Some patients who are very sensitive to narcotics may have stomach pain from this medicine. Taking the medicine with food reduces these side effects. Do not drive or work with machinery until you know how this medicine affects you. The expectorant should have no side effects. Iodine-containing expectorants (such as organidin) should not be taken by persons with active thyroid disease unless approved by your doctor. Call the doctor if you develop shortness of breath, hives, rash, itching, lightheadedness, or severe nausea and vomiting. USE OF ACETAMINOPHEN (Tylenol): Acetaminophen may be taken for pain relief or fever control. It's much safer than aspirin, offering a wider range of "safe" dosages. It is safe during . Some brand names are Tylenol, Panadol, Datril, Anacin 3, Tempra, and Liquiprin. Acetaminophen can be repeated every four hours. The following are maximum recommended dosages: >89 pounds or adults 650 mg to 900 mg Acetaminophen can be repeated every four hours. Maximum dose not to exceed 4000 mg a day. Salt and soda solution 1 quart of water 1 tablespoon of salt 1 teaspoon of baking soda Mixed 3 ingredients together and boil for 1 minute Placed in a covered quart jar Use 1/2 ounce of cold solution to gargle 3 times a day FOLLOW-UP CARE: If you have been referred to a physician for follow-up care, call the physician s office for an appointment as you were instructed or within the next two days. If you experience worsening or a significant change in your symptoms, notify the physician immediately or return to the Emergency Department at any time for re-evaluation. Prescriptions: Ondansetron [Zofran Odt 4 mg Tablet] 1 tab PO Q6H #10 tab.rapdis Forms: Elevated Blood Pressure, Return to Work Referrals: ANTONIA MANZANO PA-C [Primary Care Provider] - Follow up as needed
[2017-09-23 16:54] VITALS: BP 139/57
== END 2017-09-23 16:53 | disposition home or self-care (01) ==
LOC: ER 14:30
DX: J06.9 Acute upper respiratory infection, unspecified (principal); R05 Cough; R11.10 Vomiting, unspecified; M54.9 Dorsalgia, unspecified; R09.81 Nasal congestion; R09.89 Other specified symptoms and signs involving the circulatory and respiratory systems
CPT/HCPCS: 99283

== ENCOUNTER 2018-01-13 21:23 | Emergency (ER) | payer SELFPAY ==
--- NOTE | 2018-01-13 22:07 | ER Document Report ---
HPI - HPI Patient complains to provider of: Vomiting and diarrhea Onset: This morning Onset/Duration: Waxing and waning Pain Level: 3 Context: 27-year-old female with nausea vomiting and diarrhea today. She started having a fire like midline epigastric abdominal pain after the vomiting. Last p.o. intake was 2 PM which she was unable to keep down. History of 2 C-sections and tonsillectomy. His alcohol tobacco or drugs. LMP 4-16. Her 2 daughters have similar symptoms. Associated Symptoms: None Exacerbated by: Denies Relieved by: Denies Similar symptoms previously: No Recently seen / treated by doctor: No - ROS ROS below otherwise negative: Yes Systems Reviewed and Negative: Yes All other systems reviewed and negative - REPRODUCTIVE Reproductive: REPORTS: : Past Medical History - General Information source: Patient - Social History Smoking Status: Never Smoker Frequency of alcohol use: None Drug Abuse: None Lives with: Family Family History: CAD, CVA, Hyperlipidemia, Hypertension - Past Medical History Cardiac Medical History: Reports: Hx Hypertension - previous Past Surgical History: Reports: Hx Section, Hx Tonsillectomy - Immunizations Hx Diphtheria, Pertussis, Tetanus Vaccination: Yes - 2015 Vertical Provider Document - CONSTITUTIONAL Agree With Documented VS: Yes Exam Limitations: No Limitations - INFECTION CONTROL TRAVEL OUTSIDE OF THE [place] IN LAST 30 DAYS: No - HEENT HEENT: Normal ENT Exam - NECK Neck: Supple - RESPIRATORY Respiratory: Breath Sounds Normal, Wheezing - CARDIOVASCULAR Cardiovascular: Regular Rate, Regular Rhythm - GI/ABDOMEN Gastrointestinal: Abdomen Soft, Abdomen Non-Tender, No Organomegaly, Normal Bowel Sounds - BACK Back: Normal Inspection. negative: CVA Tenderness-Right, CVA Tenderness-Left - MUSCULOSKELETAL/EXTREMETIES Musculoskeletal/Extremeties: ELVA PEREZ - NEURO Level of Consciousness: Awake, Alert - DERM Integumentary: Warm, Dry, No Rash Course - Re-evaluation Re-evalutation: 01/13/18 23:08 Patient feels better after the Zofran and she is keeping water down. Discharge - Discharge Clinical Impression: Vomiting and diarrhea, Upper abdominal pain, Nausea Condition: Good Disposition: HOME, SELF-CARE Instructions: Diarrhea, Nonspecific ([facility]), Evaluation of Upper Abdominal Pain ( [facility]), Nausea or Vomiting, Nonspecific ([facility]) Additional Instructions: 8 mg Zofran for nausea every 6 hours as needed for nausea and vomiting Plenty of fluids to remain hydrated Return to the emergency room for fever or worsening pain
[2018-01-13] MEDS ORDERED: ONDANSETRON 4 MG TAB.RAPDIS PO ONE (22:32)
[2018-01-13] MEDS ORDERED: ONDANSETRON ODT 4 MG TAB (6 TAB/ER DISP) PO PRN (23:09)
[2018-01-14 00:20] VITALS: BP 139/80
== END 2018-01-13 23:28 | disposition home or self-care (01) ==
LOC: ER 21:23
DX: R11.2 Nausea with vomiting, unspecified (principal); R19.7 Diarrhea, unspecified; R10.13 Epigastric pain
CPT/HCPCS: 99283; S0119

== ENCOUNTER 2018-03-03 08:11 | Emergency (ER) | payer BC ==
[2018-03-03 08:18] VITALS: BP 108/65
--- NOTE | 2018-03-03 08:37 | ER Document Report ---
ED General - General Chief Complaint: Skin Sore(s) Stated Complaint: SORE THROAT Time Seen by Provider: 03/03/18 08:36 Mode of Arrival: Ambulatory TRAVEL OUTSIDE OF THE [place] IN LAST 30 DAYS: No - HPI Notes: 27-year-old female presents to the ED with complaints of ear pain sore throat 10 days. Worse with time, nothing makes better. Tried [id number] ibuprofen and Tylenol without relief. Tried saltwater gargles without any relief. Pain is 6 out of 10, throbbing achy. Patient has been exposed to sick contacts. Denies any drooling, trismus. Denies any fevers or chills. Child just finished school. Unsure if she saw some white patches in the back of her throat this morning. Denies chest pain,palpitations, shortness of breath, dyspnea, nausea, vomiting, diarrhea, abdominal pain, hematuria,blurred vision, double vision, loss of vision, speech changes, LH, dizziness, syncope, headaches , wheezing, neck pain, weakness, bowel or bladder dysfunction, saddle anesthesia , numbness or tingling in bilateral upper or lower extremities equally, muscle paralysis, weakness in bilateral upper or lower extremities equally or rash. Denies IV drug use. - Related Data Allergies/Adverse Reactions: No Known Allergies Allergy (Verified 03/03/18 08:12) Past Medical History - General Information source: Patient - Social History Smoking Status: Never Smoker Family History: CAD, CVA, Hyperlipidemia, Hypertension - Past Medical History Cardiac Medical History: Reports: Hx Hypertension - previous Denies: Hx Pulmonary Embolism, Hx Heart Murmur Pulmonary Medical History: Denies: Hx Asthma, Hx Sleep Apnea, Hx Tuberculosis Neurological Medical History: Denies: Hx Cerebrovascular Accident, Hx Seizures Endocrine Medical History: Denies: Hx Hyperthyroidism, Hx Hypothyroidism Renal/ Medical History: Denies: Hx Kidney Stones, Hx Ovarian Cysts, Hx Peritoneal Dialysis, Hx Pelvic Inflammatory Disease Malignancy Medical History: Denies: Hx Breast Cancer, Hx Cervical Cancer, Hx Ovarian Cancer GI Medical History: Denies: Hx Gastroesophageal Reflux Disease, Hx Hiatal Hernia , Hx Ulcer Musculoskeltal Medical History: Denies Hx Fibromyalgia Psychiatric Medical History: Denies: Hx Bipolar Disorder, Hx Depression, Hx Post Traumatic Stress Disorder , Hx Schizophrenia Traumatic Medical History: Denies: Hx Fractures Infectious Medical History: Denies: Hx HIV Past Surgical History: Reports: Hx Section, Hx Tonsillectomy - Immunizations Hx Diphtheria, Pertussis, Tetanus Vaccination: Yes - 2014 Review of Systems - Review of Systems Constitutional: No symptoms reported EENT: See HPI Cardiovascular: No symptoms reported Respiratory: No symptoms reported Gastrointestinal: No symptoms reported Genitourinary: No symptoms reported Female Genitourinary: No symptoms reported Musculoskeletal: No symptoms reported Skin: No symptoms reported Hematologic/Lymphatic: No symptoms reported Neurological/Psychological: No symptoms reported Physical Exam - Vital signs Vitals: Temp Pulse Resp BP Pulse Ox 98.5 F 99 16 108/65 99 03/03/18 08:16 03/03/18 08:16 03/03/18 08:16 03/03/18 08:16 03/03/18 08:16 - Notes Notes: PHYSICAL EXAMINATION: GENERAL: Well-appearing, well-nourished and in no acute distress. HEAD: Atraumatic, normocephalic. EYES: Pupils equal round and reactive to light, extraocular movements intact, conjunctiva are normal. ENT: TM intact with bilateral serous effusion, no erythema. Nares boggy bilaterally, oropharynx with erythema and exudates on left. Moist mucous membranes. NECK: Normal range of motion, supple without lymphadenopathy LUNGS: Breath sounds clear to auscultation bilaterally and equal. No wheezes rales or rhonchi. HEART: Regular rate and rhythm without murmurs ABDOMEN: Soft, nontender, nondistended abdomen. No guarding, no rebound. No masses appreciated. Female : deferred Musculoskeletal: Normal range of motion, no pitting or edema. No cyanosis. NEUROLOGICAL: Cranial nerves grossly intact. Normal speech, normal gait. Normal sensory, motor exams PSYCH: Normal mood, normal affect. SKIN: Warm, Dry, normal turgor, no rashes or lesions noted. Course - Re-evaluation Re-evalutation: 03/03/18 08:55 Presentation of several days of sore throat in an otherwise well-appearing patient with exudate in posterior pharynx. History and exam are not consistent with a retropharyngeal abscess or peritonsillar abscess. Airway is patent. No difficulty handling oral secretions. Vitals within normal limits. At this time will discharge with return precautions and follow-up recommendations. Verbal discharge instructions given a the bedside and opportunity for questions given. Medication warnings reviewed. Patient is in agreement with this plan and has verbalized understanding of return precautions and the need for primary care follow-up in the next 24-72 hours. 03/03/18 09:00 - Vital Signs Vital signs: Temp Pulse Resp BP Pulse Ox 98.5 F 99 16 108/65 99 03/03/18 08:16 03/03/18 08:16 03/03/18 08:16 03/03/18 08:16 03/03/18 08:16 Discharge - Discharge Clinical Impression: Tonsillar exudate Condition: Stable Disposition: HOME, SELF-CARE Instructions: Strep Throat ([facility]), Sore Throat ([facility]) Additional Instructions: Take antibiotic as directed with food. Eat yogurt daily to prevent loose stool. Salt water gargles. Contagious for the first 24 hours after you start antibiotic. Change her toothbrush after 2 days. Wash hands frequently. Follow -up with a PCP within 1-2 days.\ Return immediately for any new or worsening symptoms. Follow up with primary care provider, call tomorrow to make followup appointment. Prescriptions: Amoxicillin Trihydrate [Amoxil 500 mg Capsule] 500 mg PO TID #30 cap Forms: Return to Work Referrals: HTERESA GREY PA [Primary Care Provider] - Follow up in 3-5 days
== END 2018-03-03 09:08 | disposition home or self-care (01) ==
LOC: ER 08:11
DX: J02.9 Acute pharyngitis, unspecified (principal); H92.09 Otalgia, unspecified ear; I10 Essential (primary) hypertension
CPT/HCPCS: 87070; 87880; 99283

== ENCOUNTER 2018-03-23 14:24 | Emergency (ER) | payer BC ==
[2018-03-23] MEDS ORDERED: NAPROXEN 250 MG TABLET PO ONE (14:43)
[2018-03-23] MEDS ORDERED: LIDOCAINE 5% (700 MG) TRANSDERMAL ADH..PATCH TP ONE (14:44)
[2018-03-23 14:49] VITALS: BP 134/80
--- NOTE | 2018-03-23 14:51 | ER Document Report ---
ED Neck/Back Problem - General Chief Complaint: Leg Pain Stated Complaint: LEG PAIN Time Seen by Provider: 03/23/18 14:43 Mode of Arrival: Ambulatory Information source: Patient Notes: 27-year-old female presented ED for complaint of low back pain radiating to the right leg. She has a history of back pain with sciatica. She is alert and oriented respirations regular and unlabored speaking with full sentences and walks with a even steady gait. She states it is very painful to walk. TRAVEL OUTSIDE OF THE [place] IN LAST 30 DAYS: No - HPI Patient complains to provider of: Pain, Lower back. No: Injury Onset: Other - 2 weeks at this time Onset: Chronic Timing: Still present Quality of pain: Achy - The back, Burning - Burning down the right leg Severity: Severe Pain Level: 5 Context: Bending, Lifting, Turning Recent injury: No Associated symptoms: Like prior neck/back pain, Radiation to leg, Lower back pain. denies: Numbness/tingling, Sensory loss, Sweaty, Unable to urinate Exacerbated by: Movement of trunk Relieved by: Nothing Similar symptoms previously: Yes Recently seen / treated by doctor: No - Related Data Allergies/Adverse Reactions: No Known Allergies Allergy (Verified 03/23/18 14:26) Past Medical History - General Information source: Patient - Social History Smoking Status: Never Smoker Cigarette use (# per day): No Chew tobacco use (# tins/day): No Smoking Education Provided: No Frequency of alcohol use: None Drug Abuse: None Lives with: Family Family History: CAD, CVA, Hyperlipidemia, Hypertension Patient has suicidal ideation: No Patient has homicidal ideation: No - Past Medical History Cardiac Medical History: Reports: Hx Hypertension - previous Pulmonary Medical History: Reports: None EENT Medical History: Reports: None Neurological Medical History: Reports: None Endocrine Medical History: Reports: None Renal/ Medical History: Reports: None Malignancy Medical History: Reports: None GI Medical History: Reports: None Musculoskeltal Medical History: Reports Hx Musculoskeletal Deformity, Reports Hx Musculoskeletal Trauma Skin Medical History: Reports None Psychiatric Medical History: Reports: None Traumatic Medical History: Reports: None Infectious Medical History: Reports: None Past Surgical History: Reports: Hx Section, Hx Tonsillectomy - Immunizations Hx Diphtheria, Pertussis, Tetanus Vaccination: Yes - 2014 Review of Systems - Review of Systems Constitutional: No symptoms reported EENT: No symptoms reported Cardiovascular: No symptoms reported Respiratory: No symptoms reported Gastrointestinal: No symptoms reported Genitourinary: No symptoms reported Female Genitourinary: No symptoms reported Musculoskeletal: Back pain, Muscle pain, Muscle stiffness Skin: No symptoms reported Hematologic/Lymphatic: No symptoms reported Neurological/Psychological: No symptoms reported Physical Exam - Vital signs Vitals: Temp Pulse Resp BP Pulse Ox 98.9 F 100 20 134/80 H 99 03/23/18 14:47 03/23/18 14:47 03/23/18 14:47 03/23/18 14:47 03/23/18 14:47 Interpretation: Normal - General General appearance: Appears well, Alert - HEENT Head: Normocephalic, Atraumatic Eyes: Normal Pupils: PERRL - Respiratory Respiratory status: No respiratory distress Chest status: Nontender Breath sounds: Normal Chest palpation: Normal - Cardiovascular Rhythm: Regular Heart sounds: Normal auscultation Murmur: No - Abdominal Inspection: Normal Distension: No distension Bowel sounds: Normal Tenderness: Nontender Organomegaly: No organomegaly - Back Back: Tender, Vertebra tenderness. No: Deformity/step-off, CVA tenderness, Scars, Scoliosis, Wounds - Extremities General upper extremity: Normal inspection, Nontender, Normal color, Normal ROM , Normal temperature General lower extremity: Normal inspection, Nontender, Normal color, Normal ROM , Normal temperature, Normal weight bearing. No: Claribel's sign - Neurological Neuro grossly intact: Yes Cognition: Normal Orientation: AAOx4 Pauline Coma Scale Eye Opening: Spontaneous Pauline Coma Scale Verbal: Oriented Pauline Coma Scale Motor: Obeys Commands Cyndi Coma Scale Total: 15 Speech: Normal Motor strength normal: LUE, RUE, LLE, RLE Sensory: Normal - Psychological Associated symptoms: Normal affect, Normal mood - Skin Skin Temperature: Warm Skin Moisture: Dry Skin Color: Normal Course - Re-evaluation Re-evalutation: 03/23/18 21:42 Patient was seen today for back pain with radiation down the right leg. She was treated with naproxen and Lidoderm patch for her low back pain with sciatica. She states she has been treated for this in the past. She states it is come back she does not know of any definite injury. Patient states she is to follow-up with her primary doctor and get a referral. Patient is instructed on use of back exercises, ibuprofen or naproxen, ice packs and warm packs, and Aspercreme or lidocaine patches. After performing a Medical Screening Examination, I estimate there is LOW risk for EXPANDING OR RUPTURED ABDOMINAL AORTIC ANEURYSM, CAUDA EQUINA SYNDROME, EPIDURAL MASS LESION, or HERNIATED DISK CAUSING SEVERE SPINAL STENOSIS, thus I consider the discharge disposition reasonable. I have reevaluated this patient multiple times and no significant life threatening changes are noted. The patient and I have discussed the diagnosis and risks, and we agree with discharging home and close follow-up. We also discussed returning to the Emergency Department immediately if new or worsening symptoms occur with the understanding that symptoms and presentations can change. We have discussed the symptoms which are most concerning (e.g., saddle anesthesia, urinary or bowel incontinence or retention, changing or worsening pain) that necessitate immediate return. - Vital Signs Vital signs: Temp Pulse Resp BP Pulse Ox 98.9 F 100 20 134/80 H 99 03/23/18 14:47 03/23/18 14:47 03/23/18 14:47 03/23/18 14:47 03/23/18 14:47 Discharge - Discharge Clinical Impression: Low back pain Qualifiers: Chronicity: chronic Back pain laterality: right Sciatica presence: with sciatica Sciatica laterality: sciatica of right side Qualified Code(s): M54.41 - Lumbago with sciatica, right side Condition: Stable Disposition: HOME, SELF-CARE Instructions: Family Physicians / Practices Additional Instructions: LOW BACK PAIN: Three out of every four people will have an episode of disabling back pain during their lifetime. Most commonly the pain is due to straining of the muscles and ligaments in the low back. Usual treatment includes: (1) Rest on a firm surface. Avoid lying on your stomach. (2) Ice pack the painful area. After a few days, gentle heat may be used intermittently to relax the area, or ice packs can be continued. (3) Medication may be needed -- muscle relaxers and antiinflammatory medicines are commonly used. (4) As the back improves, exercises are prescribed to strengthen the back and abdominal muscles. Your doctor will advise you on the proper care for your back at each stage in your recovery. You may be better in a few days -- or healing may take several weeks. If new symptoms of a "herniated disc" (radiation of pain, numbness, or tingling down the back of the leg or weakness in the leg) occur, you should be re-examined. Further testing may be necessary. Anti-Inflammatory Medication You have received a prescription for an antiinflammatory agent. This is an excellent, safe drug for pain control. In addition, it has potent antiinflammatory effects which are beneficial, especially in the treatment of injuries, arthritis, or tendonitis. It's best to take this medicine with food. Persons with ulcer disease or allergy to aspirin should notify their physician of this before taking this drug. Take the medication exactly as prescribed. Don't take additional doses unless instructed to do so by your doctor. If you develop wheezing, shortness of breath, hives, faintness, stomach pain, vomiting, or dark black stools, return for re-evaluation at once. ICE PACKS: Apply ice packs frequently against the painful area. Many different schedules are recommended, such as "20 minutes on, 20 minutes off" or "one hour ice, two hours rest." If you need to work, you may need to go longer between ice treatments. You should plan to have the area ice packed AT LEAST one fourth of the time. The ice should be applied over the wrap, tape, or splint, or over a layer of cloth -- not directly against the skin. Some ice bags have a built-in cloth and can be put directly on the skin. WARM PACKS: After approximately two days, apply gentle heat (such as a heating pad or hot water bottle) for about 20 to 30 minutes about every two hours -- at least four times daily. Warmth and elevation will help you make a more rapid recovery , and will ease the pain considerably. Do not use HOT heat, and never apply heat for longer than 30 minutes. The continuous heat can invisibly damage skin and muscles -- even when no burn is seen on the surface. Damaged muscles can make you MORE sore. Stretching Exercises for the Back The physician has recommended that you begin stretching exercises for your back. These are often used even while the back is painful. However, you should notify the physician if the activities seem to increase your pain. PELVIC TILT: Lie flat on your back with knees bent. Tighten your stomach and buttock muscles so it flattens your lower back against the floor. Hold 10 seconds. Repeat 10 times, twice daily. KNEE RAISE: Lying on the back with knees bent, raise one knee to your chest, then the other. Hold both knees against the chest 10 seconds, then lower one knee at a time. Repeat 10 times, twice daily. PARTIAL TRUNK RAISE: Lie face down, arms at your sides. Keeping your waist on the floor, use your arms raise your chest up. Support yourself on your elbows for 30 seconds. Repeat twice daily, increasing the time to two minutes as you recover. FOLLOW-UP CARE: If you have been referred to a physician for follow-up care, call the physician s office for an appointment as you were instructed or within the next two days. If you experience worsening or a significant change in your symptoms, notify the physician immediately or return to the Emergency Department at any time for re-evaluation. Prescriptions: Naproxen 500 mg PO BID #20 tablet Forms: Elevated Blood Pressure [facility] [Provider Group] - Follow up as needed
== END 2018-03-23 15:23 | disposition home or self-care (01) ==
LOC: ER 14:24
DX: M54.41 Lumbago with sciatica, right side (principal)
CPT/HCPCS: 99283

== ENCOUNTER 2018-04-06 14:26 | Emergency (ER) | payer BC ==
[2018-04-06] MEDS ORDERED: KETOROLAC TROMETHAMINE INJ/PF 30 MG/1 ML SDV IM ONE (15:08)
--- NOTE | 2018-04-06 15:09 | ER Document Report ---
HPI - HPI Pain Level: 5 Notes: Patient is a 27-year-old female no significant past medical history who presents to the ED complaining of back pain bilaterally from her shoulders down to her low back 2-3 days. Patient states that the pain is worse with stretching and twisting movements. Patient states that her pain feels like a tightening in her back and spasm. She is eating and drinking without any difficulties. She is urinating normally and having normal bowel movements. She denies any injury. She has not had any recent injections or surgeries. Denies any IV drug use. No history of spinal abscess. Denies any drug allergies. Denies any headache, fever, head injury, neck pain, URI, sore throat , chest pain, palpitations, syncope, cough, shortness of breath, wheeze, dyspnea , abdominal pain, nausea/vomiting/diarrhea, urinary retention, dysuria, hematuria, loss of control of bowel or bladder, numbness/tingling, saddle anesthesia, muscle paralysis/weakness, or rash. - ROS Systems Reviewed and Negative: Yes All other systems reviewed and negative - REPRODUCTIVE Reproductive: REPORTS: : Past Medical History - Social History Smoking Status: Never Smoker Chew tobacco use (# tins/day): No Frequency of alcohol use: Occasional Drug Abuse: None Family History: CAD, CVA, Hyperlipidemia, Hypertension Patient has suicidal ideation: No Patient has homicidal ideation: No - Past Medical History Cardiac Medical History: Reports: Hx Hypertension - previous Denies: Hx Pulmonary Embolism, Hx Heart Murmur Pulmonary Medical History: Denies: Hx Asthma, Hx Sleep Apnea, Hx Tuberculosis Neurological Medical History: Denies: Hx Cerebrovascular Accident, Hx Seizures Endocrine Medical History: Denies: Hx Hyperthyroidism, Hx Hypothyroidism Renal/ Medical History: Denies: Hx Kidney Stones, Hx Ovarian Cysts, Hx Peritoneal Dialysis, Hx Pelvic Inflammatory Disease Malignancy Medical History: Denies: Hx Breast Cancer, Hx Cervical Cancer, Hx Ovarian Cancer GI Medical History: Denies: Hx Gastroesophageal Reflux Disease, Hx Hiatal Hernia , Hx Ulcer Musculoskeletal Medical History: Denies Hx Fibromyalgia, Reports Hx Musculoskeletal Deformity, Reports Hx Musculoskeletal Trauma Psychiatric Medical History: Denies: Hx Bipolar Disorder, Hx Depression, Hx Post Traumatic Stress Disorder , Hx Schizophrenia Traumatic Medical History: Denies: Hx Fractures Infectious Medical History: Denies: Hx HIV Past Surgical History: Reports: Hx Section, Hx Tonsillectomy - Immunizations Hx Diphtheria, Pertussis, Tetanus Vaccination: Yes - 2014 [facility] Provider Document - CONSTITUTIONAL Agree With Documented VS: Yes Notes: PHYSICAL EXAMINATION: GENERAL: Well-appearing, well-nourished and in no acute distress. Obese. LUNGS: Breath sounds clear to auscultation bilaterally and equal. No wheezes rales or rhonchi. HEART: Regular rate and rhythm without murmurs, rubs, gallops. ABDOMEN: Soft, nontender, nondistended abdomen. No guarding, no rebound. No masses appreciated. Normal bowel sounds present. No CVA tenderness bilaterally. No pulsatile mass Musculoskeletal: LE's b/l: FROM to passive/active. Strength 5+/5. No deficits noted. No bony tenderness of extremities. Back: FROM to passive/active. Strength 5+/5. No vertebral point tenderness, stepoffs, or deformities. No other bony tenderness, erythema, swelling, or ecchymosis. SLR negative b/l. + mild tenderness to the T/L-paraspinal mm b/l. Mild spasming. No SI jt tenderness. No foot drop. No tenderness to percussion of the midline spine. Extremities: No cyanosis, clubbing, or edema b/l. Peripheral pulses 2+. Capillary refill less than 2 seconds. NEUROLOGICAL: Normal speech, normal gait. Normal sensory, motor exams. Reflexes 2+ b/l. PSYCH: Normal mood, normal affect. SKIN: Warm, Dry, normal turgor, no rashes or lesions noted. - INFECTION CONTROL TRAVEL OUTSIDE OF THE [place] IN LAST 30 DAYS: No Course - Re-evaluation Re-evalutation: 04/06/18 15:10 Patient is an afebrile, well-hydrated, 27-year-old female who presents to the ED with b/l T/L paraspinal back pain, suspect spasm/strain. Vitals are acceptable. PE is otherwise unremarkable for any focal neurological deficits. No labs or imaging warranted at this time based on H&P. Patient was given Toradol. She has no significant tachycardia, tachypnea, or hypoxia. She is nontoxic-appearing and is tolerating p.o. without difficulties. There are no signs of infection. No other red flag symptoms noted. No other labs or imaging warranted at this time based on H&P. Low suspicion for any meningitis, fracture, expanding/ruptured AAA, cauda equina syndrome, epidural mass lesion/ abscess, herniated disc causing severe spinal stenosis, or other systemic infection at this time. Patient is aware that this condition can change from initial presentation and that he needs monitor symptoms closely for any acute changes. I will send her home with a prescription for baclofen and naproxen. Conservative measures otherwise for symptoms. Recheck with your PCM in 3-5 days. Consider consult with orthopedic/physical therapy. Return to the ED with any worsening/concerning symptoms otherwise as reviewed discharge. Patient is in agreement. Discharge - Discharge Clinical Impression: Thoracic back pain Qualifiers: Chronicity: acute Back pain laterality: bilateral Qualified Code(s): M54.6 - Pain in thoracic spine Low back pain Qualifiers: Chronicity: acute Back pain laterality: bilateral Sciatica presence: without sciatica Qualified Code(s): M54.5 - Low back pain Condition: Stable Disposition: HOME, SELF-CARE Instructions: Low Back Pain ([facility]), Stretching Exercises for the Back ([facility]) Additional Instructions: Rest, Ice Tylenol/ibuprofen as needed Light stretches daily Strength exercises as able Moist heat and massage may help F/u with your PCP in 3-5 days for a recheck Consider consult(s) with Orthopedics/physical therapy for ongoing/worsening symptoms Return to the ED with any worsening symptoms and/or development of fever, headache, chest pain, palpitations, syncope, shortness of breath, trouble breathing, abdominal pain, n/v/d, blood in stool/urine, loss of control of bowel /bladder, urinary retention, muscle weakness/paralysis, saddle anesthesia, numbness/tingling, or other worsening symptoms that are concerning to you. Prescriptions: Baclofen [Baclofen 10 mg Tablet] 5 - 10 mg PO BID PRN #10 tablet PRN Reason: Naproxen 500 mg PO BID PRN #30 tablet PRN Reason: Forms: Elevated Blood Pressure Referrals: [facility] [Provider Group] - Follow up as needed
[2018-04-06 15:10] VITALS: BP 137/83
== END 2018-04-06 15:37 | disposition home or self-care (01) ==
LOC: ER 14:26
DX: M54.6 Pain in thoracic spine (principal); M54.5 Low back pain
CPT/HCPCS: 99283; 96372; J1885

== ENCOUNTER 2018-08-30 20:15 | Emergency (ER) | payer SELFPAY ==
--- NOTE | 2018-08-30 20:40 | RADIOLOGY REPORT (SQ) ---
EXAM DESCRIPTION: KNEE RIGHT 4 VIEWS COMPLETED DATE/TIME: 08/30/2018 8:31 pm REASON FOR STUDY: pain COMPARISON: None. NUMBER OF VIEWS: Four views. TECHNIQUE: AP, lateral, and both oblique radiographic images acquired of the right knee. LIMITATIONS: None. FINDINGS: MINERALIZATION: Normal. BONES: No acute fracture or dislocation. No worrisome bone lesions. JOINT: Joint effusion. SOFT TISSUES: No soft tissue swelling. No radio-opaque foreign body. OTHER: No other significant finding. IMPRESSION: NEGATIVE STUDY OF THE RIGHT KNEE. NO RADIOGRAPHIC EVIDENCE OF ACUTE INJURY. TECHNICAL DOCUMENTATION: JOB ID: [id number] [employer]- All Rights Reserved Reading location - IP/workstation name: [email or web address]
--- NOTE | 2018-08-30 23:42 | ER Document Report ---
ED Extremity Problem, Lower - General Chief Complaint: Knee Pain Stated Complaint: RIGHT KNEE PAIN Time Seen by Provider: 08/30/18 23:26 Mode of Arrival: Ambulatory Information source: Patient Notes: Patient is a 28-year-old female comes emergency room complaint right knee pain. Patient states that started approximately 2 weeks ago and is progressively gotten worse. 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 She states is been difficult for her to perform her job because of the discomfort and pain. States that tonight it was difficult to bear weight just to get here. She has been trying Excedrin ibuprofen and Tylenol with no help or effect. She denies any other medical problems. TRAVEL OUTSIDE OF THE [place] IN LAST 30 DAYS: No - HPI Patient complains to provider of: Pain, Swelling Location: Knee Occurred: Other - 2 weeks ago Where: Other - Unknown Onset/Duration: Gradual, Persistent, Worse Quality of pain: Achy, Throbbing Severity: Moderate Pain Level: 3 Context: Twisted Recent injury: Possibly Associated symptoms: Unable to bear weight Exacerbated by: Movement, Walking Relieved by: Nothing - Related Data Allergies/Adverse Reactions: No Known Allergies Allergy (Verified 04/06/18 14:40) Past Medical History - General Information source: Patient - Social History Smoking Status: Never Smoker Cigarette use (# per day): No Chew tobacco use (# tins/day): No Smoking Education Provided: No Frequency of alcohol use: Occasional Drug Abuse: None Family History: Reviewed & Not Pertinent, CAD, CVA, Hyperlipidemia, Hypertension Patient has suicidal ideation: No Patient has homicidal ideation: No - Past Medical History Cardiac Medical History: Reports: Hx Hypertension - previous Denies: Hx Pulmonary Embolism, Hx Heart Murmur Pulmonary Medical History: Denies: Hx Asthma, Hx Sleep Apnea, Hx Tuberculosis Neurological Medical History: Denies: Hx Cerebrovascular Accident, Hx Seizures Endocrine Medical History: Denies: Hx Hyperthyroidism, Hx Hypothyroidism Renal/ Medical History: Denies: Hx Kidney Stones, Hx Ovarian Cysts, Hx Peritoneal Dialysis, Hx Pelvic Inflammatory Disease Malignancy Medical History: Denies: Hx Breast Cancer, Hx Cervical Cancer, Hx Ovarian Cancer GI Medical History: Denies: Hx Gastroesophageal Reflux Disease, Hx Hiatal Hernia , Hx Ulcer Musculoskeletal Medical History: Denies Hx Fibromyalgia, Reports Hx Musculoskeletal Deformity, Reports Hx Musculoskeletal Trauma Psychiatric Medical History: Denies: Hx Bipolar Disorder, Hx Depression, Hx Post Traumatic Stress Disorder , Hx Schizophrenia Traumatic Medical History: Denies: Hx Fractures Infectious Medical History: Denies: Hx HIV Past Surgical History: Reports: Hx Section, Hx Tonsillectomy - Immunizations Hx Diphtheria, Pertussis, Tetanus Vaccination: Yes - 2014 Review of Systems - Review of Systems Constitutional: No symptoms reported EENT: No symptoms reported Cardiovascular: No symptoms reported Respiratory: No symptoms reported Gastrointestinal: No symptoms reported Genitourinary: No symptoms reported Female Genitourinary: No symptoms reported Musculoskeletal: See HPI, Joint pain, Joint swelling, Muscle pain, Leg swelling Skin: No symptoms reported Hematologic/Lymphatic: No symptoms reported Neurological/Psychological: No symptoms reported -: Yes All other systems reviewed and negative Physical Exam - Vital signs Vitals: Temp Pulse Resp BP Pulse Ox 98.8 F 103 H 18 143/93 H 100 08/30/18 20:38 08/30/18 20:38 08/30/18 20:38 08/30/18 20:38 08/30/18 20:38 Interpretation: Hypertensive, Tachycardic - Notes Notes: PHYSICAL EXAMINATION: GENERAL: Patient is a well-nourished well-developed morbidly obese female who is in no apparent distress on physical exam tonight. HEAD: Atraumatic, normocephalic. EYES: Pupils equal round and reactive to light, extraocular movements intact, conjunctiva are normal. ENT: Nares patent, oropharynx clear without exudates. Moist mucous membranes. NECK: Normal range of motion, supple without lymphadenopathy LUNGS: Breath sounds clear to auscultation bilaterally and equal. No wheezes rales or rhonchi. HEART: Regular rate and rhythm without murmur Female : deferred Musculoskeletal: Examination of patient's area of concern is her right knee. When compared to the left knee there is little difference in size however there is moderate amount of pain to palpation on the medial aspect of the right knee. There is a good popliteal pulse there is a good distal dorsalis pedal pulse no real swelling in the lower extremity at all on this leg. Patient does have some moderate amount of tenderness to flexion and extension of the knee. She can get almost 100% of the full extension but only about 85 degrees of flexion. She also has some mild laxity on the inner aspect of the right knee. Patient has a slight limp with gait on the right side. There is no warmth no effusion that is noted. NEUROLOGICAL: Normal speech, normal gait. Normal sensory, motor exams PSYCH: Normal mood, normal affect. SKIN: Warm, Dry, normal turgor, no rashes or lesions noted. 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 She is morbidly obese and getting up and down off the floor and strain on the knee is probably what is transpired by her tearing some meniscus. I have informed her to be nonweightbearing for the next 3 days after 3 days to attempt to bear weight if still painful she is a 89 to see orthopedist for possible MRI. I meant informed her that she is ice down 3 times a day ibuprofen for the swelling as well and she may even benefit from wearing some support stockings. - Vital Signs Vital signs: Temp Pulse Resp BP Pulse Ox 98.7 F 102 H 18 138/82 H 99 08/30/18 23:55 08/30/18 23:55 08/30/18 23:55 08/30/18 23:55 08/30/18 23:55 Discharge - Discharge Clinical Impression: Internal derangement of multiple sites of right knee Condition: Stable Disposition: HOME, SELF-CARE Instructions: Use of Crutches ([facility]), Ice & Elevation ([facility]), Suspected Internal Knee Injury ([facility]), Knee Immobilizing Splint ([facility]), Oral Narcotic Medication ([facility] ) Additional Instructions: As we discussed there is limited things we can go to ER for helping your needs this point. I believe that you have internal derangement of some of the meniscus or tendons in the area. I think you will probably need to follow-up with orthopedist for further evaluation and possibly an MRI. At this time we will try to get you into a knee immobilizer and crutches nonweightbearing as much as possible although if it is not exceptionally painful you can use the knee immobilizer and crutches and put weight on the knee since it stabilizes it. Continue to use ibuprofen 3 times a day with food for pain discomfort. Ice to the area 3 times a day as well. I am giving you the name of the orthopedic stock handler floorperson [facility] you may contact his office to see if he can accommodate you. As far as work goes you can return on light duty do which you can with the immobilizer in place. Should you have any concerns or problems return to ER for recheck. Prescriptions: Hydrocodone/Acetaminophen [[place] 5-325 Tablet] 1 each PO Q6 PRN #12 tablet PRN Reason: Forms: Elevated Blood Pressure, Special Work Note, Parent Work Note Referrals: WILFRIDO ARSHAD DO [ACTIVE STAFF] - Follow up as needed
[2018-08-30 23:56] VITALS: BP 138/82
== END 2018-08-31 00:12 | disposition home or self-care (01) ==
LOC: ER 20:15
DX: M23.91 Unspecified internal derangement of right knee (principal); M25.561 Pain in right knee
CPT/HCPCS: 99283; 73564; L1830

== ENCOUNTER 2018-09-23 19:24 | Emergency (ER) | payer SELFPAY ==
[2018-09-23] MEDS ORDERED: KETOROLAC TROMETHAMINE 60 MG/2 ML SDV IM ONE (22:34)
[2018-09-23] MEDS ORDERED: METOCLOPRAMIDE HCL 10 MG TABLET PO ONE (22:34)
[2018-09-23] MEDS ORDERED: DIPHENHYDRAMINE HCL 25 MG CAPSULE PO ONE (22:37)
--- NOTE | 2018-09-23 22:38 | ER Document Report ---
ED General - General Chief Complaint: Headache Stated Complaint: HEADACHE Time Seen by Provider: 09/23/18 22:09 Notes: 28-year-old female presents to the emergency department with headache on her left side, some shortness of breath, and complains of pain keeping her eyes open too long. She says that the headache has been off and on for about 1 week it is on the left side of her head above her eye. She is trying to take sinus medication, Tylenol, ibuprofen with no relief. She endorses photophobia and headache. She occasionally has shortness of breath . She denies any fevers, weakness sinus pressure, sore throat, recent illness, earache, neck pain, or any other symptoms. TRAVEL OUTSIDE OF THE [place] IN LAST 30 DAYS: No - Related Data Allergies/Adverse Reactions: No Known Allergies Allergy (Verified 04/06/18 14:40) Past Medical History - Social History Smoking Status: Never Smoker Chew tobacco use (# tins/day): No Drug Abuse: None Family History: Reviewed & Not Pertinent, CAD, CVA, Hyperlipidemia, Hypertension Patient has suicidal ideation: No Patient has homicidal ideation: No - Past Medical History Cardiac Medical History: Reports: Hx Hypertension - previous Denies: Hx Pulmonary Embolism, Hx Heart Murmur Pulmonary Medical History: Denies: Hx Asthma, Hx Sleep Apnea, Hx Tuberculosis Neurological Medical History: Denies: Hx Cerebrovascular Accident, Hx Seizures Endocrine Medical History: Denies: Hx Hyperthyroidism, Hx Hypothyroidism Renal/ Medical History: Denies: Hx Kidney Stones, Hx Ovarian Cysts, Hx Peritoneal Dialysis, Hx Pelvic Inflammatory Disease Malignancy Medical History: Denies: Hx Breast Cancer, Hx Cervical Cancer, Hx Ovarian Cancer GI Medical History: Denies: Hx Gastroesophageal Reflux Disease, Hx Hiatal Hernia, Hx Ulcer Musculoskeletal Medical History: Denies Hx Fibromyalgia, Reports Hx Musculoskeletal Deformity, Reports Hx Musculoskeletal Trauma Psychiatric Medical History: Denies: Hx Bipolar Disorder, Hx Depression, Hx Post Traumatic Stress Disorder, Hx Schizophrenia Traumatic Medical History: Denies: Hx Fractures Infectious Medical History: Denies: Hx HIV Past Surgical History: Reports: Hx Section - 2, Hx Tonsillectomy - Immunizations Hx Diphtheria, Pertussis, Tetanus Vaccination: Yes - 2014 Review of Systems - Review of Systems Constitutional: See HPI EENT: See HPI Cardiovascular: See HPI Respiratory: See HPI Gastrointestinal: See HPI Genitourinary: No symptoms reported Female Genitourinary: No symptoms reported Musculoskeletal: No symptoms reported Skin: No symptoms reported Hematologic/Lymphatic: No symptoms reported Neurological/Psychological: See HPI Physical Exam - Vital signs Vitals: Temp Pulse Resp BP Pulse Ox 98.5 F 98 18 147/94 H 100 09/23/18 19:37 09/23/18 19:37 09/23/18 19:37 09/23/18 19:37 09/23/18 19:37 - Notes Notes: Reviewed vital signs and nursing note as charted by RN. CONSTITUTIONAL: Well-appearing, well-nourished, acting appropriately for age HEAD: Normocephalic, atraumatic, no swelling EYES: PERRL, Conjunctivae clear, no drainage, EOMI, no scleral icterus ENT: External ears without lesions, External auditory canal is patent, TMs without erythema, landmarks clear and well visualized, no rhinorrhea, Pharynx without erythema or lesions, no tonsillar hypertrophy, airway patent, mucous membranes pink and moist NECK: Supple, no cervical lymphadenopathy, no masses CARD: Regular rate and rhythm, no murmurs, no rubs, no gallops, capillary refill < 2 seconds, symmetric pulses RESP: The lungs are clear to auscultation bilaterally, no wheezing, no rales, no rhonchi. Respiratory rate and effort are normal, normal chest excursion. No respiratory distress, no retractions, no stridor, no nasal flaring, no accessory muscle use. ABD/GI: Normal bowel sounds, non-distended, soft, non-tender, no rebound, no guarding, no palpable organomegaly EXT: Normal ROM in all joints, non-tender to palpation, no effusions, no edema SKIN: Normal color for age and race, warm, dry, good turgor, no acute lesions noted NEURO: No facial asymmetry, moves all extremities equally, motor and sensory function intact, cranial nerves 3-6, 8, 10-12 intact, no focal neuro deficits, no pronator drift Course - Re-evaluation Re-evalutation: 09/23/18 22:39 Pleasant 28-year-old female presents with left-sided headache for about 1 week. She has tried various modalities like with ibuprofen and Tylenol with no relief. She denies any recent illness. Neuro exam was completely normal. No focal neuro deficits, strength 5/5 x 4 extremities, the rest of her physical exam was normal. I am not concerned for any intracranial abnormalities like intracranial hemorrhage or ischemia. This most likely represents a tension type headache and plan is to give a headache cocktail of Toradol 30 mg IM, Reglan 10 mg p.o., and Benadryl 25 mg p.o. and see how patient responds 09/23/18 23:38 Patient states she did not respond to the headache cocktail. She says there is absolutely no change in the quality of her headache. I palpated her scalp and she said that pressing on it actually made it feel little bit better. She did complain of tenderness to palpation over the left temporal area. At this point I still do not believe there is any life-threatening condition. Although unconventional, I am going to give her a [place] 5-325 to see if that relieves any of her symptoms. If there is any improvement in her symptoms she will be appropriate for discharge as her drove and then she will follow-up in the [facility]. 09/24/18 00:15 Patient responded well to the [place] 5325. Patient will be discharged home. Her is driving. I am not sending her home with any narcotic medications. 09/24/18 00:17 - Vital Signs Vital signs: Temp Pulse Resp BP Pulse Ox 98.0 F 88 18 136/75 H 99 09/23/18 23:25 09/23/18 23:25 09/23/18 23:25 09/23/18 23:25 09/23/18 23:25 Discharge - Discharge Clinical Impression: Headache Qualifiers: Headache type: unspecified Headache chronicity pattern: acute headache Intractability: not intractable Qualified Code(s): R51 - Headache Condition: Good Disposition: HOME, SELF-CARE Instructions: Antinausea Medication ([facility]), Headache ([facility]) Additional Instructions: You were seen in the emergency department this evening for headache. Your physical exam was normal which is reassuring to rule out any concerning abnormalities with your brain. You can take Motrin 600 mg every 6 hours and Tylenol 1000 mg every 6 hours. Please do not exceed these doses as these are the safest allowable doses and anything above will not provide any benefit but only increase the risks of side effects. Also, at bedtime you can take Benadryl 25 mg by mouth to help you sleep. Of give you the information for the caring clinic and can follow up with them to try to get your headaches further assessed. If you develop severe intractable headaches in the future that are maximal at onset, intractable nausea or vomiting, pass out, weakness in any extremity, please immediately return to the emergency department. Please follow-up with the caring clinic.
[2018-09-23 23:26] VITALS: BP 136/75
[2018-09-23] MEDS ORDERED: HYDROCODONE/ACETAMINOPHEN 5-325 MG TABLET PO ONE (23:40)
== END 2018-09-24 00:31 | disposition home or self-care (01) ==
LOC: ER 19:24
DX: R51 Headache (principal)
CPT/HCPCS: 99284; 96372; J1885

== ENCOUNTER 2019-01-11 08:22 | Emergency (ER) | payer SELFPAY ==
--- NOTE | 2019-01-11 09:03 | ER Document Report ---
ED General - General Chief Complaint: Sore Throat Stated Complaint: SORE THROAT Time Seen by Provider: 01/11/19 09:03 Mode of Arrival: Ambulatory Information source: Patient TRAVEL OUTSIDE OF THE [place] IN LAST 30 DAYS: No - HPI Notes: 28-year-old female presents to the ED for complaints of sore throat, ear pain, body aches that has been occurring for the last 3 weeks. Patient was seen at a nearby urgent care 2 weeks ago, did test positive for strep throat placed on amoxicillin, patient states that she took about 6 days of this and stopped it because she felt better. 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 reports unsure of history of seasonal allergies. Denies any rashes, vaccinations are up-to-date. Symptoms come and go, pain is 3 out of 10, itchy sometimes painful, denies any issues with swallowing, maintaining secretions. Denies fevers, chills, chest pain,palpitations, shortness of breath, dyspnea, nausea, vomiting, diarrhea, abdominal pain, hematuria,blurred vision, double vision, loss of vision, speech changes, LH, dizziness, syncope, wheezing, , neck pain, weakness, bowel or bladder dysfunction, saddle anesthesia, numbness or tingling in bilateral upper or lower extremities equally, muscle paralysis, weakness in bilateral upper or lower extremities equally or rash. - Related Data Allergies/Adverse Reactions: No Known Allergies Allergy (Verified 01/11/19 08:30) Past Medical History - General Information source: Patient - Social History Smoking Status: Never Smoker Chew tobacco use (# tins/day): No Frequency of alcohol use: None Drug Abuse: None Family History: Reviewed & Not Pertinent, CAD, CVA, Hyperlipidemia, Hypertension Patient has suicidal ideation: No Patient has homicidal ideation: No - Past Medical History Cardiac Medical History: Reports: Hx Hypertension - previous Denies: Hx Pulmonary Embolism, Hx Heart Murmur Pulmonary Medical History: Denies: Hx Asthma, Hx Sleep Apnea, Hx Tuberculosis Neurological Medical History: Denies: Hx Cerebrovascular Accident, Hx Seizures Endocrine Medical History: Denies: Hx Hyperthyroidism, Hx Hypothyroidism Renal/ Medical History: Denies: Hx Kidney Stones, Hx Ovarian Cysts, Hx Peritoneal Dialysis, Hx Pelvic Inflammatory Disease Malignancy Medical History: Denies: Hx Breast Cancer, Hx Cervical Cancer, Hx Ovarian Cancer GI Medical History: Denies: Hx Gastroesophageal Reflux Disease, Hx Hiatal Hernia, Hx Ulcer Musculoskeletal Medical History: Denies Hx Fibromyalgia, Reports Hx Musculoskeletal Deformity, Reports Hx Musculoskeletal Trauma Psychiatric Medical History: Denies: Hx Bipolar Disorder, Hx Depression, Hx Post Traumatic Stress Disorder, Hx Schizophrenia Traumatic Medical History: Denies: Hx Fractures Infectious Medical History: Denies: Hx HIV Past Surgical History: Reports: Hx Section - 2, Hx Tonsillectomy - Immunizations Hx Diphtheria, Pertussis, Tetanus Vaccination: Yes - 2014 Review of Systems - Review of Systems Constitutional: No symptoms reported EENT: See HPI Cardiovascular: No symptoms reported Respiratory: See HPI Gastrointestinal: No symptoms reported Genitourinary: No symptoms reported Female Genitourinary: No symptoms reported Musculoskeletal: No symptoms reported Skin: No symptoms reported Hematologic/Lymphatic: No symptoms reported Neurological/Psychological: No symptoms reported Physical Exam - Vital signs Vitals: Temp Pulse Resp BP Pulse Ox 98.3 F 98 18 144/83 H 98 01/11/19 08:31 01/11/19 08:31 01/11/19 08:31 01/11/19 08:31 01/11/19 08:31 - Notes Notes: PHYSICAL EXAMINATION: GENERAL: Well-appearing, well-nourished and in no acute distress. HEAD: Atraumatic, normocephalic. EYES: Pupils equal round and reactive to light, extraocular movements intact, conjunctiva are normal. ENT: TM intact with bilateral serous effusion, no erythema. Nares boggy bilaterally, oropharynx with erythema without exudates. Uvula midline. moist mucous membranes. NECK: Normal range of motion, no pain with range of motion, supple without lymphadenopathy. LUNGS: Breath sounds clear to auscultation bilaterally and equal. No wheezes rales or rhonchi. HEART: Regular rate and rhythm without murmurs ABDOMEN: Soft, nontender, nondistended abdomen. No guarding, no rebound. No masses appreciated. Female : deferred Musculoskeletal: Normal range of motion, no pitting or edema. No cyanosis. NEUROLOGICAL: Cranial nerves grossly intact. Normal speech, normal gait. Normal sensory, motor exams PSYCH: Normal mood, normal affect. SKIN: Warm, Dry, normal turgor, no rashes or lesions noted. Course - Re-evaluation Re-evalutation: 01/11/19 09:35 28-year-old female afebrile, slightly hypertensive although asymptomatic, and in no distress for evaluation of sore throat, dry cough, nasal congestion, bilateral headache. Patient did not finish her course of antibiotics when she was diagnosed with strep throat 2 weeks ago, was prescribed amoxicillin, states she only took 6 days of amoxicillin. Patient did not get her flu vaccination, states his symptoms have been persistent for the last 3 weeks however has not been taking her antibiotics for the last week and a half. presentation of several days of sore throat in an otherwise well-appearing patient. Rapid strep is positive. History and exam are not consistent with a retropharyngeal abscess or peritonsillar abscess. Airway is patent. No difficulty handling oral secretions. Vitals within normal limits. Patient has been treated with an IM dose of penicillin. At this time will discharge with return precautions and follow-up recommendations. Verbal discharge instructions given a the bedside and opportunity for questions given. Medication warnings reviewed. Patient is in agreement with this plan and has verbalized understanding of return precautions and the need for primary care follow-up in the nex 01/11/19 13:57 - Vital Signs Vital signs: Temp Pulse Resp BP Pulse Ox 98.3 F 98 18 144/83 H 98 01/11/19 08:31 01/11/19 08:31 01/11/19 08:31 01/11/19 08:31 01/11/19 08:31 Discharge - Discharge Clinical Impression: Strep throat Condition: Stable Disposition: HOME, SELF-CARE Instructions: Strep Throat ([facility]), Upper Respiratory Illness ([facility]), Sore Throat ([facility]), Fever ([facility]), Acetaminophen Additional Instructions: SORE THROAT: Sore throats may be caused by viruses, bacteria, or fungi. Most are due to a virus, and must get better on their own. Bacterial sore throats, particularly those due to "strep," need treatment with antibiotics. If an antibiotic is prescribed, be sure to take the medication for a full 10 days. Failure to take the antibiotic can result in complications such as rheumatic fever. Sometimes, an injection of antibiotics is given instead of pills or liquid. This single "shot" is equal in effectiveness to the oral medication. To relieve symptoms, take acetaminophen for pain. Sip clear liquids frequently, or eat popsicles or ice chips. Anesthetic sprays or lozenges may help. Make sure the air in the room is not too dry. Avoid using decongestants or antihistamines. Call the doctor if there is no improvement in two days, or if you have difficulty breathing, increasing throat pain, high fever, rash, or frequent vomiting. STREP THROAT: Your sore throat is due to the streptococcus germ (strep throat). Strep throat usually makes you feel quite ill with fever and aches, headache, swollen sore throat, and tender bumps under the angles of the jaw. Strep throat requires antibiotic treatment. Although the sore throat may go away by itself, complications such as rheumatic fever, kidney disease, or throat abscess can occur. We usually prescribe antibiotics by mouth. Be sure to take the medicine until it's gone. If you stop early, the strep may come back. If you are vomiting, are severely ill, or can't remember to take pills, we can give you an antibiotic shot. Take acetaminophen or ibuprofen for pain and fever. Sip frequent clear liquids, or use popsicles or ice chips. Anesthetic sprays or lozenges may help. Make sure the air in the room is not too dry. Avoid using decongestants or antihistamines. Call the doctor if there is no improvement in three days, or if you have difficulty breathing, increasing throat pain, high fever, rash, or frequent vomiting. FOLLOW-UP CARE: If you have been referred to a physician for follow-up care, call the physicians office for an appointment as you were instructed or within the next two days. If you experience worsening or a significant change in your symptoms, notify the physician immediately or return to the Emergency Department at any time for re-evaluation. Return immediately for any new or worsening symptoms. Follow up with primary care provider, call tomorrow to make followup appointment. Prescriptions: Azithromycin [Zithromax] 250 mg PO DAILY 5 Days #6 tablet Forms: Return to Work Referrals: JUAN ALBERTO VENEGAS MD [ACTIVE STAFF] - Follow up in 3-5 days
[2019-01-11 09:56] LABS: A TYPE INFLUENZA AG NEGATIVE (NEGATIVE); B INFLUENZA AG NEGATIVE (NEGATIVE)
[2019-01-11 10:49] VITALS: BP 141/75
== END 2019-01-11 10:49 | disposition home or self-care (01) ==
LOC: ER 08:22
DX: J02.0 Streptococcal pharyngitis (principal); H92.09 Otalgia, unspecified ear; M79.10 Myalgia, unspecified site; I10 Essential (primary) hypertension
CPT/HCPCS: 36415; 86308; 87804; 87880; 99283

== ENCOUNTER 2019-08-30 10:26 | Emergency (ER) | payer SELFPAY ==
--- NOTE | 2019-08-30 10:40 | ER Document Report ---
ED Medical Screen (RME) - General Chief Complaint: Flank Pain Stated Complaint: FLANK PAIN/NAUSEA Time Seen by Provider: 08/30/19 10:36 Mode of Arrival: Ambulatory Information source: Patient Notes: 29-year-old female presents to ED for complaint of left flank pain starting yesterday's. She states she does have some nausea has not vomited. She denies any history of any injuries. She states she has been urinating more frequently but no other symptoms. States her last menstrual cycle was August 08. States she does not use drugs or tobacco but she does occasionally drink. 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 States the only treatment she has been trying is increasing in her fluids. She states only medical history is 2 C-sections. Patient is alert oriented respirations regular nonlabored speaking in full sentences. Lungs are clear tender to left flank. I have greeted and performed a rapid initial assessment of this patient. A comprehensive ED assessment and evaluation of the patient, analysis of test results and completion of medical decision making process will be conducted by an additional ED providers. TRAVEL OUTSIDE OF THE [place] IN LAST 30 DAYS: No - Related Data Allergies/Adverse Reactions: No Known Allergies Allergy (Verified 07/06/19 11:44) Past Medical History - Past Medical History Cardiac Medical History: Reports: Hx Hypertension - previous Denies: Hx Pulmonary Embolism, Hx Heart Murmur Pulmonary Medical History: Denies: Hx Asthma, Hx Sleep Apnea, Hx Tuberculosis Neurological Medical History: Denies: Hx Cerebrovascular Accident, Hx Seizures Endocrine Medical History: Denies: Hx Hyperthyroidism, Hx Hypothyroidism Renal/ Medical History: Denies: Hx Kidney Stones, Hx Ovarian Cysts, Hx Peritoneal Dialysis, Hx Pelvic Inflammatory Disease Malignancy Medical History: Denies: Hx Breast Cancer, Hx Cervical Cancer, Hx Ovarian Cancer GI Medical History: Denies: Hx Gastroesophageal Reflux Disease, Hx Hiatal Hernia, Hx Ulcer Musculoskeltal Medical History: Denies Hx Fibromyalgia, Reports Hx Musculoskeletal Deformity, Reports Hx Musculoskeletal Trauma Psychiatric Medical History: Denies: Hx Bipolar Disorder, Hx Depression, Hx Post Traumatic Stress Disorder, Hx Schizophrenia Traumatic Medical History: Denies: Hx Fractures Infectious Medical History: Denies: Hx HIV Past Surgical History: Reports: Hx Section - 2, Hx Tonsillectomy - Immunizations Hx Diphtheria, Pertussis, Tetanus Vaccination: Yes - 2014 Physical Exam - Vital signs Vitals: Temp Pulse Resp BP Pulse Ox 98.4 F 90 18 137/88 H 100 08/30/19 10:30 08/30/19 10:30 08/30/19 10:30 08/30/19 10:30 08/30/19 10:30 Course - Vital Signs Vital signs: Temp Pulse Resp BP Pulse Ox 98.4 F 90 18 137/88 H 100 08/30/19 10:30 08/30/19 10:30 08/30/19 10:30 08/30/19 10:30 08/30/19 10:30
[2019-08-30] MEDS ORDERED: IBUPROFEN 800 MG TABLET PO ONE (10:41)
[2019-08-30] MEDS ORDERED: ONDANSETRON 4 MG TAB.RAPDIS PO ONE (10:41)
[2019-08-30 11:10] LABS: ABSOLUTE EOSINOPHILS # (AUTO) 0.1 10^3/uL (0.0-0.6); ABSOLUTE LYMPHOCYTES (AUTO) 1.9 10^3/uL (0.5-4.7); ABSOLUTE MONOCYTES (AUTO) 0.3 10^3/uL (0.1-1.4); ABSOLUTE NEUT (AUTO) 3.9 10^3/uL (1.7-8.2); BASOPHILS % (AUTO) 0.6 % (0-2); EOSINOPHILS % (AUTO) 1.8 % (0-6); HEMATOCRIT 32.2 % (36.0-47.0); HEMOGLOBIN 10.4 g/dL (12.0-15.5); LYMPHOCYTES % (AUTO) 30.7 % (13-45); MEAN CORPUSCULAR HEMOGLOBIN 25.2 pg (27.0-33.4); MEAN CORPUSCULAR HGB CONC 32.3 g/dL (32.0-36.0); MEAN CORPUSCULAR VOLUME 78 fl (80-97); MONOCYTES % (AUTO) 4.7 % (3-13); PLATELET COUNT 298 10^3/uL (150-450); RED BLOOD COUNT 4.13 10^6/uL (3.72-5.28); RED CELL DISTRIBUTION WIDTH 17.5 % (11.5-14.0); SEGMENTED NEUTROPHILS % (AUTO) 62.2 % (42-78); TOTAL CELLS COUNTED % (AUTO) 100 %; WHITE BLOOD COUNT 6.3 10^3/uL (4.0-10.5)
[2019-08-30 11:35] LABS: ALBUMIN 3.8 g/dL (3.5-5.0); ALKALINE PHOSPHATASE 76 U/L (38-126); ANION GAP 7 (5-19); ASPARTATE AMINO TRANSFERASE 16 U/L (14-36); BILIRUBIN,DIRECT 0.1 mg/dL (0.0-0.4); BILIRUBIN,TOTAL 0.7 mg/dL (0.2-1.3); BLOOD UREA NITROGEN 8 mg/dL (7-20); CALCIUM 8.9 mg/dL (8.4-10.2); CARBON DIOXIDE 28 mmol/L (22-30); CHLORIDE 104 mmol/L (98-107); GLUCOSE 102 mg/dL (75-110); POTASSIUM 4.4 mmol/L (3.6-5.0); TOTAL PROTEIN 7.3 g/dL (6.3-8.2)
[2019-08-30 11:38] LABS: APPEARANCE,URINE SLIGHTLY-CLOUDY; BILIRUBIN,URINE NEGATIVE (NEGATIVE); COLOR,URINE YELLOW; GLUCOSE, URINE NEGATIVE (NEGATIVE); KETONES,URINE NEGATIVE (NEGATIVE); PROTEIN,URINE 100 mg/dL (NEGATIVE); URINE SPECIFIC GRAVITY 1.016
--- NOTE | 2019-08-30 11:59 | RADIOLOGY REPORT (SQ) ---
EXAM DESCRIPTION: U/S RETROPERITON (RENAL/AORTA) COMPLETED DATE/TIME: 08/30/2019 11:50 am REASON FOR STUDY: left flank pain COMPARISON: None. TECHNIQUE: Dynamic and static grayscale images acquired of the kidneys and bladder and recorded on P ACS. Additional selected color Doppler and spectral images recorded. LIMITATIONS: None. FINDINGS: RIGHT KIDNEY: Normal size measuring 11.2 cm. Normal echogenicity. No solid or suspicious m asses. No hydronephrosis. No calcifications. LEFT KIDNEY: Normal size measuring 10.1 cm. Normal echogenicity. No solid or suspicious masses. No h ydronephrosis. No calcifications. BLADDER: Decompressed. OTHER FINDINGS: No other significant finding. IMPRESSION: Unremarkable renal ultrasound. No hydronephrosis. TECHNICAL DOCUMENTATION: JOB ID: [id number] [employer]- All Rights Reserved Reading location - IP/workstation name: [email or web address]
--- NOTE | 2019-08-30 12:24 | ER Document Report ---
ED General - General Chief Complaint: Flank Pain Stated Complaint: FLANK PAIN/NAUSEA Time Seen by Provider: 08/30/19 10:36 Mode of Arrival: Ambulatory Information source: Patient Notes: This 29-year-old morbidly obese female presents to emergency department with complaints of left flank pain that started yesterday. She reports the flank pain is constant. She also complains of urinary frequency and some nausea. Denies fever diarrhea. Denies pain with void. Reports urinary frequency denies history of kidney stones. Denies family history of kidney stones as far she knows. Reports she drinks juice water sodas and some sweet tea on a regular basis. TRAVEL OUTSIDE OF THE [place] IN LAST 30 DAYS: No - HPI Onset: Yesterday Onset/Duration: Persistent Quality of pain: Achy Associated symptoms: Nausea, Other - urinary frequency Exacerbated by: Denies Relieved by: Denies Similar symptoms previously: No Recently seen / treated by doctor: No - Related Data Allergies/Adverse Reactions: No Known Allergies Allergy (Verified 07/06/19 11:44) Past Medical History - General Information source: Patient Last Menstrual Period: 08/08 - Social History Smoking Status: Never Smoker Cigarette use (# per day): No Frequency of alcohol use: Occasional Drug Abuse: None Lives with: Family Family History: Reviewed & Not Pertinent, CAD, CVA, Hyperlipidemia, Hypertension Patient has suicidal ideation: No Patient has homicidal ideation: No - Past Medical History Cardiac Medical History: Reports: Hx Hypertension - previous Denies: Hx Pulmonary Embolism, Hx Heart Murmur Pulmonary Medical History: Denies: Hx Asthma, Hx Sleep Apnea, Hx Tuberculosis Neurological Medical History: Denies: Hx Cerebrovascular Accident, Hx Seizures Endocrine Medical History: Denies: Hx Hyperthyroidism, Hx Hypothyroidism Renal/ Medical History: Denies: Hx Kidney Stones, Hx Ovarian Cysts, Hx Peritoneal Dialysis, Hx Pelvic Inflammatory Disease Malignancy Medical History: Denies: Hx Breast Cancer, Hx Cervical Cancer, Hx Ovarian Cancer GI Medical History: Denies: Hx Gastroesophageal Reflux Disease, Hx Hiatal Hernia, Hx Ulcer Musculoskeletal Medical History: Denies Hx Fibromyalgia, Reports Hx Musculosk eletal Deformity, Reports Hx Musculoskeletal Trauma Psychiatric Medical History: Denies: Hx Bipolar Disorder, Hx Depression, Hx Post Traumatic Stress Disorder, Hx Schizophrenia Traumatic Medical History: Denies: Hx Fractures Infectious Medical History: Denies: Hx HIV Past Surgical History: Reports: Hx Section - 2, Hx Tonsillectomy - Immunizations Hx Diphtheria, Pertussis, Tetanus Vaccination: Yes - 2014 Review of Systems - Review of Systems Notes: Review HPI for review of systems., All other systems negative Physical Exam - Vital signs Vitals: Temp Pulse Resp BP Pulse Ox 98.4 F 90 18 137/88 H 100 08/30/19 10:30 08/30/19 10:30 08/30/19 10:30 08/30/19 10:30 08/30/19 10:30 - General General appearance: Appears well, Alert In distress: None - HEENT Head: Normocephalic Eyes: Normal Conjunctiva: Normal Extraocular movements intact: Yes Eyelashes: Normal Pupils: PERRL Ears: Normal External canal: Normal Tympanic membrane: Normal Pharynx: Normal. No: Erythema Neck: Normal, Supple. No: Lymphadenopathy - Respiratory Respiratory status: No respiratory distress Chest status: Nontender Breath sounds: Normal Chest palpation: Normal - Cardiovascular Rhythm: Regular Heart sounds: Normal auscultation Murmur: No - Abdominal Inspection: Normal Distension: No distension Tenderness: Nontender - Back Back: CVA tenderness - Left. No: Vertebra tenderness - Extremities General upper extremity: Normal ROM, Normal strength General lower extremity: Normal ROM, Normal strength - Neurological Neuro grossly intact: Yes Cognition: Normal Orientation: AAOx4 Cyndi Coma Scale Eye Opening: Spontaneous Cyndi Coma Scale Verbal: Oriented Henry Coma Scale Motor: Obeys Commands Henry Coma Scale Total: 15 Speech: Normal - Psychological Associated symptoms: Normal affect, Normal mood - Skin Skin Temperature: Warm Skin Moisture: Dry Skin Color: Normal Course - Re-evaluation Re-evalutation: 08/30/19 12:23 29-year-old female presents emergency department with left-sided flank pains that started yesterday. She does not look in any extreme distress resting quietly on the bed watching TV labs unremarkable, no leukocytosis, with history of iron deficiency anemia. Urine with large amount of red blood cells, renal ultrasound negative. Discussed ultrasound with megan rogers and she reports possibly unable to see kidney stone due to patient's weight. Will do CT. Patient instructed on plan of care and all results she verbalized understanding agrees with plan. 08/30/19 13:49 CT and renal ultrasound unremarkable. Labs unremarkable, no leukocytosis, urine shows hematuria. Patient does complain of urinary frequency combined with flank pain will treat with Macrobid for UTI. Patient was instructed on UTI Macrobid. She was instructed on signs and symptoms of allergic reaction. She was instructed on the importance of follow-up with the primary care provider in 1 week for recheck. She was also instructed on the urine culture pending. She verbalized understanding to all instructions. Renal Ultrasound 08/30/19 10:41 IMPRESSION: Unremarkable renal ultrasound. No hydronephrosis. Abdomen/Pelvis CT 08/30/19 12:19 IMPRESSION: No evidence of nephrolithiasis or obstructive uropathy. No other evidence of acute intra-abdominal/pelvic process 08/30/19 10:55 08/30/19 10:55 MCV 78 fl (80-97) L 08/30/19 10:55 MCH 25.2 pg (27.0-33.4) L 08/30/19 10:55 MCHC 32.3 g/dL (32.0-36.0) 08/30/19 10:55 RDW 17.5 % (11.5-14.0) H 08/30/19 10:55 Seg Neutrophils % 62.2 % (42-78) 08/30/19 10:55 Chloride 104 mmol/L (98-107) 08/30/19 10:55 Carbon Dioxide 28 mmol/L (22-30) 08/30/19 10:55 Anion Gap 7 (5-19) 08/30/19 10:55 Est GFR ( Amer) > 60 (>60) 08/30/19 10:55 Glucose 102 mg/dL (75-110) 08/30/19 10:55 Calcium 8.9 mg/dL (8.4-10.2) 08/30/19 10:55 Total Bilirubin 0.7 mg/dL (0.2-1.3) 08/30/19 10:55 AST 16 U/L (14-36) 08/30/19 10:55 Alkaline Phosphatase 76 U/L (38-126) 08/30/19 10:55 Total Protein 7.3 g/dL (6.3-8.2) 08/30/19 10:55 Albumin 3.8 g/dL (3.5-5.0) 08/30/19 10:55 Urine Color YELLOW 08/30/19 11:00 Urine Appearance SLIGHTLY-CLOUDY 08/30/19 11:00 Urine pH 6.0 (5.0-9.0) 08/30/19 11:00 Ur Specific Shirley 1.016 08/30/19 11:00 Urine Protein 100 mg/dL (NEGATIVE) H 08/30/19 11:00 Urine Glucose (UA) NEGATIVE mg/dL (NEGATIVE) 08/30/19 11:00 Urine Ketones NEGATIVE mg/dL (NEGATIVE) 08/30/19 11:00 Urine Blood LARGE (NEGATIVE) H 08/30/19 11:00 Urine RBC (Auto) >182 /HPF 08/30/19 11:00 Dictation of this chart was performed using voice recognition software; therefore, there may be some unintended grammatical errors. - Vital Signs Vital signs: Temp Pulse Resp BP Pulse Ox 98.5 F 78 20 128/58 H 100 08/30/19 13:55 08/30/19 13:55 08/30/19 13:55 08/30/19 13:55 08/30/19 13:55 - Laboratory Result Diagrams: 08/30/19 10:55 08/30/19 10:55 Laboratory results interpreted by me: 08/30/19 08/30/19 08/30/19 10:55 10:55 11:00 Hgb 10.4 L Hct 32.2 L MCV 78 L MCH 25.2 L RDW 17.5 H Creatinine 0.45 L Urine Protein 100 H Urine Blood LARGE H Urine Urobilinogen 2.0 H - Diagnostic Test Radiology reviewed: Image reviewed, Reports reviewed Discharge - Discharge Clinical Impression: Flank pain Urinary tract infection Qualifiers: Urinary tract infection type: site unspecified Hematuria presence: with hematuria Qualified Code(s): N39.0 - Urinary tract infection, site not specified Condition: Stable Disposition: HOME, SELF-CARE Instructions: Flank Pain ([facility]), Nitrofurantoin ([facility]), Urinary Tract Infection ([facility]) Additional Instructions: *You have been evaluated for neck pain, UTI *Take medication as prescribed *Push fluids *Follow up with your primary care provider within 1 week for recheck *Return to ED for worsening condition, changes, needs Monitor your blood pressure. Your blood pressure was elevated today. This may be because you were anxious, in pain or because you need medication. It is important to follow up with your primary care provider for full evaluation. Prescriptions: Nitrofurantoin/Nitrofuran Mac [Macrobid 100 mg Capsule] 100 mg PO BID #20 capsule Forms: Elevated Blood Pressure
--- NOTE | 2019-08-30 12:59 | RADIOLOGY REPORT (SQ) ---
EXAM DESCRIPTION: CT ABD/PELVIS NO ORAL OR IV COMPLETED DATE/TIME: 08/30/2019 12:46 pm REASON FOR STUDY: flank pain, possible kidney stone COMPARISON: None. TECHNIQUE: CT scan of the abdomen and pelvis performed without intravenous or oral contrast. Images reviewed with lung, soft tissue, and bone windows. Reconstructed coronal and sagittal MPR images revi ewed. All images stored on PACS. All CT scanners at this facility use dose modulation, iterative reconstruction, and/or weight based d osing when appropriate to reduce radiation dose to as low as reasonably achievable (ALARA). [facility]: Dose Right [facility]: CareDose [facility]: Dose Right [facility]: Teradose 4D [facility]: Smart [employer] RADIATION DOSE: CT Rad equipment meets quality standard of care and radiation dose reduction techniq ues were employed. CTDIvol: 19.2 mGy. DLP: 1058 mGy-cm.mGy. LIMITATIONS: None. FINDINGS: LOWER CHEST: No significant findings. No nodules or infiltrates. NON-CONTRASTED LIVER, SPLEEN, ADRENALS: Evaluation limited by lack of IV contrast. No identified sign ificant masses. Borderline splenomegaly. PANCREAS: No masses. No peripancreatic inflammatory changes. GALLBLADDER: Decompressed. RIGHT KIDNEY AND URETER: No suspicious masses. Assessment limited by lack of IV contrast. No signif icant calcifications. No hydronephrosis or hydroureter. LEFT KIDNEY AND URETER: No suspicious masses. Assessment limited by lack of IV contrast. No signifi cant calcifications. No hydronephrosis or hydroureter. AORTA AND RETROPERITONEUM: No aneurysm. No retroperitoneal masses or adenopathy. BOWEL AND PERITONEAL CAVITY: No obvious masses or inflammatory changes. No free fluid. APPENDIX: Normal. PELVIS, BLADDER, AND ABDOMINAL WALL:Decompressed urinary bladder. No free fluid. No lymphadenopathy . BONES: No acute bony abnormality. Degenerative changes at the bilateral sacroiliac joints. Mild low er lumbar facet arthropathy. OTHER: Obesity. IMPRESSION: No evidence of nephrolithiasis or obstructive uropathy. No other evidence of acute intr a-abdominal/pelvic process COMMENT: Quality ID # [id number]: Final reports with documentation of one or more dose reduction techniques (e.g., Automated exposure control, adjustment of the mA and/or kV according to patient size, use of iterative reconstruction technique) TECHNICAL DOCUMENTATION: JOB ID: [id number] [employer]- All Rights Reserved Reading location - IP/workstation name: [email or web address]
[2019-08-30 13:58] VITALS: BP 128/58
== END 2019-08-30 13:55 | disposition home or self-care (01) ==
LOC: ER 10:26
DX: N39.0 Urinary tract infection, site not specified (principal); R10.9 Unspecified abdominal pain; R35.0 Frequency of micturition; R11.0 Nausea; I10 Essential (primary) hypertension
CPT/HCPCS: 99284; 36415; 87086; 85025; 81025; 80053; 81001; 76770; 74176; S0119

== ENCOUNTER 2020-09-08 19:50 | Emergency (ER) | payer SELFPAY ==
--- NOTE | 2020-09-08 20:00 | ER Document Report ---
ED Medical Screen (RME) - General Chief Complaint: Leg Pain Stated Complaint: BURNING SENSATION IN LEFT LEG Time Seen by Provider: 09/08/20 19:56 Notes: Patient presents complaining of left leg pain and left knee pain. Patient denies any chest pain or shortness of breath. Patient denies any fever. Patient denies any injury. Patient denies any underlying chronic conditions. I have greeted and performed a rapid initial assessment of this patient. A comprehensive ED assessment and evaluation of the patient, analysis of test results and completion of the medical decision making process will be conducted by additional ED providers. TRAVEL OUTSIDE OF THE [place] IN LAST 30 DAYS: No - Related Data Allergies/Adverse Reactions: No Known Allergies Allergy (Verified 07/06/19 11:44) Past Medical History - Social History Chew tobacco use (# tins/day): No Frequency of alcohol use: None Drug Abuse: None - Past Medical History Cardiac Medical History: Reports: Hx Hypertension - previous Denies: Hx Pulmonary Embolism, Hx Heart Murmur Pulmonary Medical History: Denies: Hx Asthma, Hx Sleep Apnea, Hx Tuberculosis Neurological Medical History: Denies: Hx Cerebrovascular Accident, Hx Seizures Endocrine Medical History: Denies: Hx Hyperthyroidism, Hx Hypothyroidism Renal/ Medical History: Denies: Hx Kidney Stones, Hx Ovarian Cysts, Hx Peritoneal Dialysis, Hx Pelvic Inflammatory Disease Malignancy Medical History: Denies: Hx Breast Cancer, Hx Cervical Cancer, Hx Ovarian Cancer GI Medical History: Denies: Hx Gastroesophageal Reflux Disease, Hx Hiatal Hernia, Hx Ulcer Musculoskeltal Medical History: Denies Hx Fibromyalgia, Reports Hx Musculoskeletal Deformity, Reports Hx Musculoskeletal Trauma Psychiatric Medical History: Denies: Hx Bipolar Disorder, Hx Depression, Hx Post Traumatic Stress Di sorder, Hx Schizophrenia Traumatic Medical History: Denies: Hx Fractures Infectious Medical History: Denies: Hx HIV Past Surgical History: Reports: Hx Section - 2, Hx Tonsillectomy - Immunizations Hx Diphtheria, Pertussis, Tetanus Vaccination: Yes - 2014 Physical Exam - Vital signs Vitals: Temp Pulse Resp BP Pulse Ox 98.2 F 100 18 149/87 H 100 09/08/20 19:56 09/08/20 19:56 09/08/20 19:56 09/08/20 19:56 09/08/20 19:56 - Extremities General lower extremity: Tender - Left calf and left knee joint tenderness Course - Vital Signs Vital signs: Temp Pulse Resp BP Pulse Ox 98.2 F 100 18 149/87 H 100 09/08/20 19:57 09/08/20 19:56 09/08/20 19:56 09/08/20 19:56 09/08/20 19:56
--- NOTE | 2020-09-08 20:53 | RADIOLOGY REPORT (SQ) ---
EXAM DESCRIPTION: XR KNEE 4 OR MORE VIEWS COMPLETED DATE/TME: 09/08/2020 20:25 CLINICAL HISTORY: 30 years Female L knee pain COMPARISON: None. TECHNIQUE: Left knee, four views FINDINGS: No acute fractures or dislocations are identified. No osseous destructive lesions. No joint effusion is noted. IMPRESSION: No acute fracture is identified.
--- NOTE | 2020-09-08 22:21 | ER Document Report ---
ED General - General Chief Complaint: Leg Pain Stated Complaint: BURNING SENSATION IN LEFT LEG Time Seen by Provider: 09/08/20 19:56 TRAVEL OUTSIDE OF THE [place] IN LAST 30 DAYS: No - HPI Notes: Chief Complaint: Left leg pain and numbness Historian: History obtained from patient HPI: This is a 30-year-old female who presents to the ER complaining of couple days of left lower leg pain and numbness. No injury or trauma. Says pain and tingling to the medial aspect of the left lower leg and also some paresthesias to her distal toes. Describes pain as burning and skin is sensitive to the touch. No rash or lesions. She has a history of sciatica but has not had that in a long time and says this feels different. No history of DVT or PE and no risk factors. Denies incontinence, saddle anesthesia, BLE weakness. No treatments tried. ROS: Constitutional: no fevers. HEENT: no BOYKIN, sore throat, or vision changes. CV: no chest pain or palpitations. Resp: no cough or SOB. GI: no abdominal pain, or n/v/d. : no dysuria, hematuria, or incont. MSK: Left lower leg pain and tingling. Skin: no rashes or itching. Neuro: no seizures, weakness, numbness, or confusion. Hematological: no ecchymosis or easy bleeding. Endocrine: no polyuria/polydipsia, no heat/cold intolerance. Psych: no SI/HI, AH/VH or memory loss. PMHx: Reviewed and agree as charted by RN. PSHx: Reviewed and agree as charted by RN. SOCHx: Reviewed and agree as charted by RN. FHX: No significant familial comorbid conditions directly related to patient complaint Current Medications: Reviewed and agree with the patient medications as charted by the RN. Allergies: Reviewed and agree with the listed allergies as charted by the RN Physical Exam: Vitals: Reviewed in chart as documented by RN. General: Alert and in NAD. Head: Normocephalic; atraumatic Eyes: PERRLA, Conjunctivae clear sclerae non-icteric bilat ENT: no soft palate swelling or uvular deviation Neck: trachea midline, no unilateral swelling/tenderness/lymphadenopathy CV: RRR, no M/R/G; symmetric distal pulses Resp: respirations even and unlabored, CTA bilat. GI: abd soft and nondistended. NTTP. normal BS. no masses/HSM. no CVAT bilat MSK: msk- lumbar- no midline tenderness or deformity. FROM lf L spine. SLR pos left, neg right. Strength 5/5 and equal to BLE. no saddle anesthesia. 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 no calf swelling/erythema, neg milo sign. pedal pulses 2+ to BLE. cap refill <3 sec no rash to lower leg. Skin: warm, moist, good turgor. no rash/lesions Neuro: Alert and oriented X 4. following CN 2-12 intact. no unilateral weakness/numbness Psych: No SI/HI or AH/VH. ED Results: Medical Decision-Making: Medical Decision-making/Differential Diagnosis: Consider various etiologies including but not limited to DVT, paresthesias, herpes zoster, Lumbar strain/sprain, radiculopathy, degenerative disease, spinal stenosis, skin/soft tissue structure injury, MSK injury, strain/sprain, fracture (low prob), dislocation (low prob), given patients reassuring history and physical as well as the absence of danger signs (concerning for infection, compressive myelopathy, malignancy, etc) plan- triage provider ordered knee XR and doppler US of LLE. pt sx's likely due to lumbar radiculopathy. she has good pulses and perfusion. FROM of LLE- no motor deficits. only minior sensory changes. herpes zoster considered but no rash noted. knee XR neg. doppler US neg as well. will d/c w/ steroids and muscle relaxers- pt is not a diabetic. work note given. This course of action was discussed with the patient and/or family. They were amenable to this, verbalized understanding, and were without further questions. - Related Data Allergies/Adverse Reactions: No Known Allergies Allergy (Verified 07/06/19 11:44) Past Medical History - Social History Smoking Status: Never Smoker Chew tobacco use (# tins/day): No Frequency of alcohol use: None Drug Abuse: None Family History: Reviewed & Not Pertinent, CAD, CVA, Hyperlipidemia, Hypertension Patient has homicidal ideation: No - Past Medical History Cardiac Medical History: Reports: Hx Hypertension - previous Denies: Hx Pulmonary Embolism, Hx Heart Murmur Pulmonary Medical History: Denies: Hx Asthma, Hx Sleep Apnea, Hx Tuberculosis Neurological Medical History: Denies: Hx Cerebrovascular Accident, Hx Seizures Endocrine Medical History: Denies: Hx Hyperthyroidism, Hx Hypothyroidism Renal/ Medical History: Denies: Hx Kidney Stones, Hx Ovarian Cysts, Hx Peritoneal Dialysis, Hx Pelvic Inflammatory Disease Malignancy Medical History: Denies: Hx Breast Cancer, Hx Cervical Cancer, Hx Ovarian Cancer GI Medical History: Denies: Hx Gastroesophageal Reflux Disease, Hx Hiatal Hernia, Hx Ulcer Musculoskeletal Medical History: Denies Hx Fibromyalgia, Reports Hx Musculoskeletal Deformity, Reports Hx Musculoskeletal Trauma Psychiatric Medical History: Denies: Hx Bipolar Disorder, Hx Depression, Hx Post Traumatic Stress Disorder, Hx Schizophrenia Traumatic Medical History: Denies: Hx Fractures Infectious Medical History: Denies: Hx HIV Past Surgical History: Reports: Hx Section - 2, Hx Tonsillectomy - Immunizations Hx Diphtheria, Pertussis, Tetanus Vaccination: Yes - 2014 Physical Exam - Vital signs Vitals: Temp Pulse Resp BP Pulse Ox 98.2 F 100 18 149/87 H 100 09/08/20 19:56 09/08/20 19:56 09/08/20 19:56 09/08/20 19:56 09/08/20 19:56 Course - Vital Signs Vital signs: Temp Pulse Resp BP Pulse Ox 98.2 F 100 18 149/87 H 100 09/08/20 19:57 09/08/20 19:56 09/08/20 19:56 09/08/20 19:56 09/08/20 19:56 - Laboratory Results Critical Laboratory Results Reviewed: No Critical Results - Radiology Results Critical Radiology Results Reviewed: No Critical Results Discharge - Discharge Clinical Impression: Lumbar radiculopathy, acute Condition: Stable Disposition: HOME, SELF-CARE Instructions: Radiculopathy ([facility]) Additional Instructions: take first dose of gabapentin before bed, bc it can make you dizzy/drowsy at first. people usually get used to it pretty quickly though. no driving while taking it. rest and follow printed instructions. return to the ER if your condition worsens. also may take tylenol and motrin for pain. Prescriptions: Prednisone [Deltasone 20 mg Tablet] 3 tab PO DAILY 5 Days #15 tablet Gabapentin [Neurontin 300 mg Capsule] 300 mg PO BIDP PRN #15 cap PRN Reason: Forms: Return to Work
--- NOTE | 2020-09-08 22:47 | RADIOLOGY REPORT (SQ) ---
EXAM DESCRIPTION: VENOUS UNILATERAL LOWER (left). 09/08/2020 7:58 PM [employer] CLINICAL HISTORY: 30 years Female, LLE Pain, swelling; ; COMPARISON: None. FINDINGS: Left common femoral, femoral, popliteal, posterior tibial, greater saphenous, and small saphenous veins demonstrate normal compressibility and phasicity. The right common femoral vein also appears normal. Superficial soft tissues show no suspicious abnormality. IMPRESSION: No evidence of deep venous thrombosis within the left lower extremity.
[2020-09-08 23:20] VITALS: BP 139/83
== END 2020-09-08 23:23 | disposition home or self-care (01) ==
LOC: ER 19:50
DX: M54.16 Radiculopathy, lumbar region (principal)
CPT/HCPCS: 93971; 99284

== ENCOUNTER 2020-09-30 21:16 | Emergency (ER) | payer SELFPAY ==
--- NOTE | 2020-09-30 22:33 | ER Document Report ---
ED General - General Chief Complaint: Headache Stated Complaint: HEADACHE,BODY ACHES,SOB Time Seen by Provider: 09/30/20 22:25 Primary Care Provider: [facility] [Provider Group] - Follow up as needed TRAVEL OUTSIDE OF THE [place] IN LAST 30 DAYS: No - HPI Notes: Patient is a 30 y/o female with no medical hx who presents with shortness of breath, headache and body aches that began today. Patient reports nonproductive cough but denies fever, vomiting, abdominal pain and diarrhea. She states her fiance tested positive for COVID about one month ago. She denies any recent sick contacts or other potential COVID exposures. Patient denies tobacco, alcohol and recreational drug use. - Related Data Allergies/Adverse Reactions: No Known Allergies Allergy (Verified 07/06/19 11:44) Past Medical History - General Information source: Patient - Social History Smoking Status: Unknown if Ever Smoked Frequency of alcohol use: None Drug Abuse: None Family History: Reviewed & Not Pertinent, CAD, CVA, Hyperlipidemia, Hypertension - Past Medical History Cardiac Medical History: Reports: Hx Hypertension - previous Denies: Hx Pulmonary Embolism, Hx Heart Murmur Pulmonary Medical History: Denies: Hx Asthma, Hx Sleep Apnea, Hx Tuberculosis Neurological Medical History: Denies: Hx Cerebrovascular Accident, Hx Seizures Endocrine Medical History: Denies: Hx Hyperthyroidism, Hx Hypothyroidism Renal/ Medical History: Denies: Hx Kidney Stones, Hx Ovarian Cysts, Hx Peritoneal Dialysis, Hx Pelvic Inflammatory Disease Malignancy Medical History: Denies: Hx Breast Cancer, Hx Cervical Cancer, Hx Ovarian Cancer GI Medical History: Denies: Hx Gastroesophageal Reflux Disease, Hx Hiatal Hernia, Hx Ulcer Musculoskeletal Medical History: Denies Hx Fibromyalgia, Reports Hx Musculoskeletal Deformity, Reports Hx Musculoskeletal Trauma Psychiatric Medical History: Denies: Hx Bipolar Disorder, Hx Depression, Hx Post Traumatic Stress Disorder, Hx Schizophrenia Traumatic Medical History: Denies: Hx Fractures Infectious Medical History: Denies: Hx HIV Past Surgical History: Reports: Hx Section - 2, Hx Tonsillectomy - Immunizations Hx Diphtheria, Pertussis, Tetanus Vaccination: Yes - 2014 Review of Systems - Review of Systems Constitutional: No symptoms reported EENT: No symptoms reported Cardiovascular: No symptoms reported Respiratory: See HPI Gastrointestinal: No symptoms reported Genitourinary: No symptoms reported Female Genitourinary: No symptoms reported Musculoskeletal: See HPI Skin: No symptoms reported Hematologic/Lymphatic: No symptoms reported Neurological/Psychological: See HPI Physical Exam - Vital signs Vitals: Temp Pulse Resp BP Pulse Ox 98.2 F 98 17 150/86 H 100 09/30/20 22:04 09/30/20 22:04 09/30/20 22:04 09/30/20 22:04 09/30/20 22:04 - Notes Notes: PHYSICAL EXAMINATION: VITAL PHYSICAL EXAMINATION: VITALS: Vitals reviewed and within normal limits. GENERAL: Well-appearing, well-nourished and in no acute distress. HEAD: Atraumatic, normocephalic. EYES: Pupils equal, round, and reactive to light, extraocular movements intact, sclera anicteric, conjunctiva are normal. ENT: Nares patent. Moist mucous membranes. Oropharynx clear without exudates. NECK: Normal range of motion, supple without lymphadenopathy. LUNGS: Breath sounds clear to auscultation bilaterally and equal. No wheezes, rales, or rhonchi. HEART: Regular, rate, and rhythm without murmurs. ABDOMEN: Soft, nontender, normoactive bowel sounds. No guarding, no rebound. No masses appreciated. EXTREMITIES: Normal range of motion, no pitting or edema. No cyanosis. NEUROLOGICAL: No focal neurological deficits. Moves all extremities spontaneously and on command. PSYCH: Normal mood, normal affect. SKIN: Warm, Dry, normal turgor, no rashes or lesions noted. Course - Re-evaluation Re-evalutation: Patient is a 30-year-old female with no medical history presents with shortness of breath, headache, and myalgias. Patient's vital signs are within normal limits. On exam, lungs are clear to auscultation bilaterally with nonlabored respirations. Rapid flu swab is negative. Chest x-ray is negative and shows no signs of pneumonia. COVID-19 swab is pending. Patient's history and presentation are consistent with viral syndrome. I have a low clinical suspicion for emergent etiology such as [place], PE, pneumonia and other cardiac and pulmonary pathology. Patient advised to quarantine at home until COVID-19 results have come back. Return precautions follow-up instructions given. Patient will be discharged home. Patient understands and is agreement the plan. - Vital Signs Vital signs: Temp Pulse Resp BP Pulse Ox 98.2 F 98 17 150/86 H 100 09/30/20 22:04 09/30/20 22:04 09/30/20 22:04 09/30/20 22:04 09/30/20 22:04 - Laboratory Results Critical Laboratory Results Reviewed: No Critical Results - Radiology Results Critical Radiology Results Reviewed: No Critical Results Discharge - Discharge Clinical Impression: Viral syndrome, Shortness of breath, Headache, Myalgia, Suspected 2019-nCoV infection Condition: Stable Disposition: HOME, SELF-CARE Instructions: COVID-19 Guidance for Persons Under Investigation, Viral Syndrome ([facility]) Forms: Return to Work Referrals: [facility] [Provider Group] - Follow up as needed
--- NOTE | 2020-09-30 23:29 | RADIOLOGY REPORT (SQ) ---
EXAM DESCRIPTION: XR CHEST 1 VIEW COMPLETED DATE/TME: 09/30/2020 23:02 CLINICAL HISTORY: 30 years, Female, shortness of breath EXAM DESCRIPTION: CHEST SINGLE VIEW CLINICAL HISTORY: shortness of breath COMPARISON: None. FINDINGS: Single view of the chest is submitted. Cardiac silhouette is normal. No focal parenchymal or pleural disease. There is no significant pulmonary vascular engorgement. IMPRESSION: No evidence of acute cardiopulmonary disease.
[2020-09-30 23:37] LABS: A TYPE INFLUENZA AG NEGATIVE (NEGATIVE); B INFLUENZA AG NEGATIVE (NEGATIVE)
[2020-10-01 00:14] VITALS: BP 151/106
== END 2020-10-01 00:15 | disposition home or self-care (01) ==
LOC: ER 21:16
DX: R51.9 Headache, unspecified (principal); M79.10 Myalgia, unspecified site; B34.9 Viral infection, unspecified; R06.02 Shortness of breath; Z20.822 Contact with and (suspected) exposure to COVID-19
CPT/HCPCS: 99284; 87635; 87804; 71045; C9803